=== PATIENT | female | born 1930 | race Caucasian/White ===

== ENCOUNTER 2017-05-01 12:45 | Emergency (ER) | payer OTHER, BC ==
[~2017-05-01] VITALS: Ht 157.5 cm; Wt 76.0 kg
[~2017-05-01 12:45] MED LIST: ALBUAER19 INH; ALUM-30 PO; ATOR-22 PO; BNC/40 PO; CHOL20009 PO; DICL1GEL12 TOP; DICY10CA12 PO; DILT-117 PO; FLUT0.0529 NAE; LEVO50TA6 PO; OMEP20CA9 PO; OXYSR10 PO; SERT1TAB71 PO; TPRSR25 PO; TRAM-453 PO; TRAZ1TAB9 PO; TYLOTC500 PO
[2017-05-01 12:52] VITALS: Ht 157.5 cm; Wt 76.0 kg
[2017-05-01] MEDS ORDERED: ARC5 PO (13:19)
[2017-05-01] MEDS ORDERED: [UNRECOGNIZED DRUG - CODE] PO (13:19)
[2017-05-01] MEDS ORDERED: FLV1 PO (13:19)
[2017-05-01] MEDS ORDERED: FERR1TAB62 PO (13:19)
[2017-05-01] MEDS ORDERED: VNTHFA/IN INH (13:20)
[2017-05-01] MEDS ORDERED: FLUT0.15 NAE (13:20)
[2017-05-01] MEDS ORDERED: ACETAMINOPHEN 325 MG TAB PO STA (13:27)
--- NOTE | 2017-05-01 14:05 | DIAGNOSTIC IMAGING REPORT ---
HEAD CT NONCONTRAST CT DOSE: 537.48 mGy.cm HISTORY: Trauma fall; L frontal contusion TECHNIQUE: Multiaxial CT images of the head were performed without the use of intravenous contrast. Comparison: 06/25/2016 Findings: The paranasal sinuses and mastoid air cells are clear. The calvarium and skull base are intact. The ventricles and sulci are within normal limits. There is no mass, hematoma, midline shift, or acute infarct. Components of chronic small vessel change in the cerebral hemispheres bilaterally. This is unaltered from the prior exam. Extracranial left prefrontal soft tissue edema. The orbits are symmetric. Impression: 1. No acute intracranial abnormality. 2. Considerable chronic small vessel change considered unchanged in the prior exam. 3. Extracranial left prefrontal soft tissue edema/contusion. Electronically signed by: Keith Ortiz M.D. 05/01/2017 2:02 PM Dictated Date/Time: 05/01/2017 2:00 PM
--- NOTE | 2017-05-01 14:35 | DIAGNOSTIC IMAGING REPORT ---
LEFT KNEE 3 VIEWS CLINICAL HISTORY: fall; R and L knee contusions trauma. Pain. COMPARISON: None. DISCUSSION: The bones and joint spaces appear intact. There is no evidence of fracture, dislocation or bony disease. Small osteophyte from the superior aspect of the patella. No significant joint effusion. IMPRESSION: No acute process. Electronically signed by: Keith Ortiz M.D. 05/01/2017 2:34 PM Dictated Date/Time: 05/01/2017 2:34 PM
--- NOTE | 2017-05-01 14:37 | DIAGNOSTIC IMAGING REPORT ---
RIGHT KNEE 3 VIEWS CLINICAL HISTORY: Right knee pain status post trauma COMPARISON: 1815 DISCUSSION: The bones are osteopenic. No acute fractures are visualized. There is a suspected small suprapatellar joint effusion. There are mild degenerative changes. IMPRESSION: Mild degenerative change. No acute fractures. Suspected small joint effusion Electronically signed by: Vinh Lam M.D. 05/01/2017 2:35 PM Dictated Date/Time: 05/01/2017 2:35 PM
--- NOTE | 2017-05-01 14:43 | DIAGNOSTIC IMAGING REPORT ---
LEFT HAND MIN 3 VIEWS ROUTINE CLINICAL HISTORY: fall; L hand and thumb pain trauma. Pain. COMPARISON: None. DISCUSSION: Nondisplaced transverse cortical fracture distal first metacarpal. Generalized soft tissue edema. Moderate degenerative change of the interphalangeal joints as well as intercarpal joints throughout. No evidence for dislocation. IMPRESSION: 1. Nondisplaced transverse cortical fracture distal first metacarpal. 2. Generalized soft tissue edema Electronically signed by: Keith Ortiz M.D. 05/01/2017 2:41 PM Dictated Date/Time: 05/01/2017 2:39 PM
[2017-05-01] MEDS ORDERED: DIPHTHERIA/TETANUS/PERTUSSIS 0.5 ML SYR/VIAL IM. ONE (15:30)
--- NOTE | 2017-05-01 16:11 | EMERGENCY ROOM VISIT NOTE ---
ED Visit Note First contact with patient: 13:15 I have personally seen and evaluated the patient with the physician refinery operator assistant. I agree with the diagnostic/management decisions and have personally been involved in these decisions and agree with the diagnosis.
[2017-05-01 16:24] VITALS: BP 134/71; PULSE 65; TEMP 36.6; O2SAT 96
--- NOTE | 2017-05-09 14:09 | EMERGENCY ROOM VISIT NOTE ---
ED Visit Note First contact with patient: 13:15 Chief Complaint: Fall. History of Present Illness: Ms. Olmstead is an 86-year-old white female who is brought into the ED via wheelchair accompanied by her daughter following a fall. Patient was just discharged from the Medical Treatment Unit where she received 2 units of blood for anemia. Patient reports she was going to the bathroom and when she was pulling up her underwear she lost her balance and fell into the wall. She reports she struck her left-sided forehead on the wall and then fell to her knees. In the process of her fall she also put out her left arm to catch her weight. She reports at the time of the injury she did not have a loss of consciousness and since the injury just a few minutes ago she reports she is not having a headache or any abnormal neurological symptoms. Her most severe discomfort is in the left hand over the first metacarpal and extending into the thumb. She describes this pain as a sharp and throbbing sensation. She rates her discomfort 8/10. Her pain is nonradiating. Her pain worsens with palpation in all movements of the MCP joint. She has not identified any alleviating factors related to the pain. She has not had any medications for pain prior to arrival at the hospital. Associated with her pain she reports mild swelling. She denies any omega wrist pain, forearm pain, thumb weakness/numbness/tingling. She also denies any previous significant injuries to the thumb or the left hand. Additionally she is complaining of mild tenderness and swelling in the left frontal area and over the anterior aspect of both knees. She describes these as a mild achy sensation. She does not rates this discomfort. These discomforts worsen with palpation. Additionally she denies dizziness, lightheadedness, neck pain/stiffness, chest pain, shortness of breath, thoracic and lumbar back pain, abdominal pain, nausea , vomiting, extremity weakness/numbness/tingling. Review of Systems: As noted above in history of present illness. All body systems were reviewed and found to be negative as noted above. Past Medical History: (1) Arthritis (2) Depressive Disorder Nec (3) Diab Ira Wo Compl, Type Ii Or Unspec Type, Not Uncntrld (4) Esophageal Reflux (5) Fibromyalgia (6) Glaucoma Nos (7) Hypertension Nos (8) Hypothyroidism Nos (9) Rheumatoid Arthritis CURRENT MEDICATION: Medications Dose Route/Sig Max Daily Dose Days Date Category Dose Instructions Ventolin Hfa (Albuterol) 200 Puffs/86857 Mcg Aers 2 Puffs INH QID PRN 05/01/17 Reported Flonase Allergy Relief (Fluticasone Propionate (Nasal)) 50 Mcg/Act Spr 2 [place] EDWARD DAILY 05/01/17 Reported Cvs Vitamin B12 (Cyanocobalamin) 1,000 Mcg Tab 1,000 Mcg PO QAM 05/01/17 Reported Folic Acid 1 Mg Tab 1 Mg PO QAM 05/01/17 Reported Donepezil HCl 5 Mg Tab 5 Mg PO HS 05/01/17 Reported Ferrous Sulfate 325 Mg Tab 325 Mg PO BID 05/01/17 Reported Metoprolol Succinate ER (Metoprolol Succinate) 25 Mg Tabcr 25 Mg PO HS 07/04/16 Reported Mylanta (Alum & Mag Hydrox-Simethicone) 1 Meaghan Meaghan 1 Tbs PO DAILY 06/25/16 Reported pt takes in between meals Levothyroxine Sodium 50 Mcg Tab 50 Mcg PO DAILY 30 05/28/15 Reported Benicar (Olmesartan Medoxomil) 40 Mg Tab 40 Mg PO DAILY 05/28/15 Reported Vitamin D (Cholecalciferol) 2,000 Unit Tab 2,000 Units PO DAILY 05/28/15 Reported Ultram (Tramadol Hcl) 50 Mg Tab 50 Mg PO TID PRN 05/28/15 Reported TAKE WITH A 500MG TYLENOL TABLET Oxycontin (Oxycodone HCl) 10 Mg Tabcr 10 Mg PO BID 05/28/15 Reported one tab in am and one tab in pm Tylenol (Acetaminophen) 500 Mg Tab 500 Mg PO 3-4XD PRN 05/28/15 Reported Prilosec (Omeprazole) 20 Mg Cap 40 Mg PO AMHS 05/28/15 Reported Voltaren 1% Top Gel (Diclofenac Sodium (Topical)) 1 % Gel 2 Gm TOP QID PRN 05/28/15 Reported Zoloft (Sertraline Hcl) 50 Mg Tab 50 Mg PO QPM 05/28/15 Reported Desyrel (Trazodone Hcl) 100 Mg Tab 100 Mg PO HS 05/28/15 Reported Dicyclomine Hcl 10 Mg Cap 10 Mg PO TID 30 05/28/15 Reported BEFORE MEALS Tiazac (Diltiazem HCl) 300 Mg Capcr 300 Mg PO HS 05/28/15 Reported Lipitor (Atorvastatin Calcium) 20 Mg Tab 20 Mg PO HS 05/28/15 Reported Allergies to Medications: Aspirin, cyclobenzaprine, diazepam, hydrochlorothiazide, meloxicam, methotrexate, penicillin, potassium chloride, sulfa. Social History: Patient is not currently employed; she feels safe in her home environment; she denies tobacco use. Physical Examination: Vital Signs: Date Time Temp Pulse Resp B/P (MAP) Pulse Ox O2 Delivery O2 Flow Rate FiO2 05/01/17 16:24 36.6 65 20 134/71 96 05/01/17 16:24 65 20 134/71 96 Room Air 05/01/17 12:52 36.6 52 20 169/70 96 Room Air GENERAL: 86-year-old female in mild to moderate distress due to pain, nontoxic- appearing, afebrile and hemodynamically stable. NEUROLOGICAL: Awake, alert and oriented to person, place and time. Answering questions appropriately and following commands. Cranial nerves II through XII grossly intact. Good short-term and long-term recall. SKIN: Warm, dry and pink. Forehead: Early contusion to the left forehead. Left Thumb: Swelling and ecchymosis around the metacarpal extending into the MCP and proximal phalange area. Bilateral Knees: Early contusions and minimal swelling; no active bleeding. Bilateral Lower Legs: Shows multiple small soft tissue skin tears with no active bleeding. HEENT: Skull: Atraumatic and normocephalic. No palpable deformity, bony crepitus, swelling or depressions. No raccoon's eyes or quintanilla signs. No drainage from the ears and the naris; no hemotympanum. Face: Mild tenderness over the left frontal area with early contusion as noted above. Do not appreciate any bony deformity or crepitus. There is no other swelling noted and I did not appreciate any deformities of the orbits, zygomatic arch areas, nasal bones, maxilla or mandible. PERRLA. EOMI without nystagmus. Sclera white and conjunctiva pink. No malocclusion. No intraoral trauma. Airway patent. Speech normal. Trachea midline. No jugular venous distention. BACK: No tenderness over the bony cervical, thoracic and lumbar spine. Full range of motion of the cervical spine. No tenderness throughout the paraspinous muscles of the spine. No CVA tenderness. THORAX: Lungs sounds are clear to auscultation and equal bilaterally with symmetrical chest wall. No crepitus, tenderness, subcutaneous air or deformities noted. ABDOMEN: Flat, soft and nontender. Positive bowel sounds in all quadrants. No guarding, rigidity or organomegaly. UPPER EXTREMITIES: No tenderness over the shoulders, upper arms, elbows, forearms or wrists. On the left patient has moderate tenderness and swelling over the first metacarpal, the first MCP joint and first proximal phalange. I do not appreciate any bony deformity or crepitus. She had difficulty moving the MCP joint due to pain. With the MCP joint stabilize she was able to flex and stand the first interphalangeal joint without difficulty. Thumb was warm and pink and capillary refill is brisk. She is able to distinguish light sensations over the distal thumb. There was no tenderness, bony deformity or swelling of the rest of the left hand and all of the right hand. All distal neurovascular statuses are intact and equal bilaterally. LOWER EXTREMITIES: No shortening or mouth rotation's. No tenderness over the hips, thighs, knees, lower legs, ankles or feet. Superficial abrasions as noted above. Mild swelling to the prepatellar area on the right. On examination she has full range of motion in flexion and extension of the knees. Do not appreciate any laxity of the collateral or cruciate ligaments. Because of her body habitus it was difficult to do Raul's test. There is also full range of motion at the hip and the ankle. Distal neurovascular statuses are intact and equal bilaterally. ED Course: Patient is assessed as noted above. Patient's medication list was reviewed. Head CT: Was reviewed by myself and read by the radiologist showing no acute intracranial abnormalities. Considerable chronic small vessel changes but unchanged from previous CT. Left prefrontal extracranial soft tissue edema. Left Hand X-Rays: Were read by myself and the radiologist showing a nondisplaced transverse cortical fracture of the distal first metacarpal with mild swelling. Radiologist also noted moderate degenerative changes throughout the interphalangeal joints and inter- carpal joints. Right Knee X-Rays: Were read by myself and the radiologist showing no acute fractures or dislocations. Small suprapatellar joint effusion and mild degenerative changes noted by the radiologist. Left Knee X-Rays: Was read by myself and the radiologist and showing no acute fractures or dislocations. No joint effusion. Small osteophyte in the superior aspect of the patella. Patient was given 650 mg of acetaminophen by mouth for pain and because of her superficial abrasions her tetanus status was unsure so she received a Adacel injection. Patient's left thumb fracture was placed in a Ortho-Glass thumb spica splint. Patient's wounds were cleansed with antibacterial soap and water and dressed with sterile dressings. Patient's case was reviewed with Dr. Ascencio; he independently assessed the patient we agreed on diagnostic approach, treatment, disposition and plan. Patient and daughter were educated about today's findings and instructed on her treatment plan; she verbalizes understanding and agreement with this plan. Clinical Impression: Left first metacarpal fracture. Left prefrontal area contusion. Bilateral patellar contusions. Bilateral lower leg superficial skin tears. Disposition: Patient discharged home in stable condition accompanied by her daughter; prior to departure she was reassessed and subjectively reported she was feeling better and rated her discomfort 2/10. Plan: Patient was encouraged to continue her current medications. Wound care, comfort measures and signs of infection were discussed with the patient and her daughter. Daughter was educated on signs of worsening head injury. Patient was encouraged to follow-up with network desktop support specialist in [place] for her thumb fracture. Patient was encouraged return the ED or follow-up with her primary care provider for any signs of infection or any new/concerning symptoms. Patient was encouraged return the ED for any signs of worsening head injury or any new/concerning symptoms.
[2017-05-09] MEDS ORDERED: FOLI1TAB7 PO (15:12)
[2017-05-09] MEDS ORDERED: FERR1TAB13 PO (15:12)
[2017-05-09] MEDS ORDERED: CYAN100020 PO (15:12)
[2017-05-09] MEDS ORDERED: DONE5TAB9 PO (15:12)
[2017-05-09] MEDS ORDERED: GUAI1TAB69 PO (15:12)
[2017-05-09] MEDS ORDERED: LATA0.5S OP (15:12)
[2017-05-09] MEDS ORDERED: ALPPOPS5 OP (15:12)
== END 2017-05-01 16:26 | disposition home or self-care (01) ==
LOC: C.EDB 12:46 → C.EDA 16:26
DX: S62.522A Displaced fracture of distal phalanx of left thumb, initial encounter for closed fracture (principal); S00.83XA Contusion of other part of head, initial encounter; S80.01XA Contusion of right knee, initial encounter; S80.02XA Contusion of left knee, initial encounter; S80.811A Abrasion, right lower leg, initial encounter; S80.812A Abrasion, left lower leg, initial encounter; W18.30XA Fall on same level, unspecified, initial encounter; Y92.238 Other place in hospital as the place of occurrence of the external cause; M25.461 Effusion, right knee; M25.762 Osteophyte, left knee; F32.9 Major depressive disorder, single episode, unspecified; E11.9 Type 2 diabetes mellitus without complications; K21.9 Gastro-esophageal reflux disease without esophagitis; D64.9 Anemia, unspecified; I10 Essential (primary) hypertension; E03.9 Hypothyroidism, unspecified; M06.9 Rheumatoid arthritis, unspecified; Z23 Encounter for immunization

== ENCOUNTER 2017-05-02 15:22 | Emergency (ER) | payer OTHER, BC ==
[~2017-05-02] VITALS: Ht 157.5 cm; Wt 73.0 kg
[~2017-05-02 15:22] MED LIST changes: -ALBUAER19 INH; +ARC5 PO; +FERR1TAB62 PO; -FLUT0.0529 NAE; +FLUT0.15 NAE; +FLV1 PO; +VNTHFA/IN INH; +[UNRECOGNIZED DRUG - CODE] PO
[2017-05-02 15:32] VITALS: BP 157/71; PULSE 70; TEMP 37.4; O2SAT 95; Ht 157.5 cm; Wt 73.0 kg
--- NOTE | 2017-05-02 16:13 | EMERGENCY ROOM VISIT NOTE ---
History Report prepared by Barryibcosta: Suzette Mccoy Under the Supervision of: Dr. Simon Ascencio D.O. First contact with patient: 15:46 Chief Complaint: GI ASSESSMENT Stated Complaint: BLACK STOOL Nursing Triage Summary: triage note: Pt daughter reports pt has dark loose stool. pt daughter reports pt recieved blood tranfusion yesterday "they don't know where she is loosing blood." pt fell yesterday and got cast to left thumb today at [facility]. History of Present Illness The patient is a 86 year old female who presents to the Emergency Room with complaints of dark stools occurring today. The patient had a blood transfusion yesterday. She was having loose bowels today. She had 3-4 bowel movements today. Her stool was not black or tarry. She was started on iron pills about a week and a half ago. As per family, the patient has a colonoscopy scheduled for next Friday. She currently denies any pain. The patient denies any fevers, chills, or any other complaints. Source of History: patient Onset: today Position: other (global) Symptom Intensity: No pain Quality: other (black stools) Associated Symptoms: No fevers, No chills Review of Systems See HPI for pertinent positives & negatives. A total of 10 systems reviewed and were otherwise negative. Past Medical & Surgical Medical Problems: (1) Arthritis (2) Depressive Disorder Nec (3) Diab Ira Wo Compl, Type Ii Or Unspec Type, Not Uncntrld (4) Esophageal Reflux (5) Fibromyalgia (6) Glaucoma Nos (7) Hypertension Nos (8) Hypothyroidism Nos (9) Rheumatoid Arthritis Family History FH: cancer FH: diabetes mellitus FH: hypertension FH: kidney disease Noncontributory due to advanced age Social History Smoking Status: Former Smoker Alcohol Use: none Marital Status: Housing Status: lives with family Occupation Status: retired Current/Historical Medications Scheduled Alum & Mag Hydrox-Simethicone (Mylanta), 1 TBS PO DAILY Atorvastatin (Lipitor), 20 MG PO HS Cholecalciferol (Vitamin D), 2,000 UNITS PO DAILY Cyanocobalamin (Cvs Vitamin B12), 1,000 MCG PO QAM Dicyclomine Hcl (Dicyclomine Hcl), 10 MG PO TID Diltiazem Hcl Ext Rel (Tiazac), 300 MG PO HS Donepezil HCl (Donepezil HCl), 5 MG PO HS Ferrous Sulfate (Ferrous Sulfate), 325 MG PO BID Fluticasone Propionate (Nasal) (Flonase Allergy Relief), 2 SPRAY EDWARD DAILY Folic Acid (Folic Acid), 1 MG PO QAM Levothyroxine Sodium (Levothyroxine Sodium), 50 MCG PO DAILY Metoprolol Succinate (Metoprolol Succinate ER), 25 MG PO HS Olmesartan Medoxomil (Benicar), 40 MG PO DAILY Omeprazole (Prilosec), 40 MG PO AMHS Oxycodone HCl (Oxycontin), 10 MG PO BID Sertraline Hcl (Zoloft), 50 MG PO QPM Trazodone Hcl (Desyrel), 100 MG PO HS Scheduled PRN Acetaminophen (Tylenol), 500 MG PO 3-4XD PRN for Pain Albuterol Hfa (Ventolin Hfa), 2 PUFFS INH QID PRN for Shortness of Breath Diclofenac Sodium (Topical) (Voltaren 1% Top Gel), 2 GM TOP QID PRN for Pain Tramadol Hcl (Ultram), 50 MG PO TID PRN for Pain Allergies Coded Allergies: Diazepam (Unverified Allergy, Intermediate, HALLUCIATIONS, 05/01/17) Penicillins (Unverified Allergy, Intermediate, DIARRHEA, 05/01/17) Sulfa Drugs (Unverified Allergy, Intermediate, ABD PAIN, 05/01/17) Aspirin (Verified Allergy, Unknown, unk, 05/01/17) Cyclobenzaprine (Verified Allergy, Unknown, unk, 05/01/17) Hydrochlorothiazide (Verified Allergy, Unknown, unk, 05/01/17) Meloxicam (Verified Allergy, Unknown, unk, 05/01/17) Methotrexate (Verified Allergy, Unknown, unk, 05/01/17) Potassium Chloride (Verified Allergy, Unknown, unk, 05/01/17) Rofecoxib (Unverified Allergy, Unknown, UNKNOWN, 05/01/17) Uncoded Allergies: TAPE (Allergy, Intermediate, REDDENED SKIN, SKIN TEARS, 05/01/17) PT MUST USE PAPER TAPE Physical Exam Vital Signs Date Time Temp Pulse Resp B/P (MAP) Pulse Ox O2 Delivery O2 Flow Rate FiO2 05/02/17 15:32 37.4 70 18 157/71 95 Room Air Physical Exam CONSTITUTIONAL/VITAL SIGNS: Reviewed / noted above. GENERAL: Non-toxic in appearance. INTEGUMENTARY: Warm, dry, and [place]. HEAD: Normocephalic. Left eye periorbital ecchymosis. EYES: without scleral icterus or trauma. ENT/OROPHARYNX: clear and moist. LYMPHADENOPATHY/NECK: Is supple without lymphadenopathy or meningismus. RESPIRATORY: Lungs clear and equal. CARDIOVASCULAR: Regular rate and rhythm. GI/ABDOMEN: Soft and nontender. No organomegaly or pulsatile mass. No rebound or guarding. Normal bowel sounds. RECTAL: Black stool, guaiac negative. EXTREMITIES: Warm and well perfused. Cast on left arm. BACK: No CVA tenderness. NEUROLOGICAL: Intact without focal deficits. PSYCHIATRIC: normal affect. MUSCULOSKELETAL: Normally developed with good muscle tone. Medical Decision & Procedures ED Course 1546: Previous medical records were reviewed. The patient was evaluated in room B10. A complete history and physical examination was performed. 1600: On reevaluation, the patient is resting comfortably. I discussed the results and findings with the patient. She verbalized agreement of the treatment plan. She was discharged home. Medical Decision Differential diagnosis: Etiologies such as diverticulosis, AVM, coagulopathy, colitis, inflammatory bowel disease, malignancy, Francesca-Manning tear, esophagitis, peptic ulcer disease , variceal bleed, gastritis, epistaxis, fissure, hemorrhoids, as well as others were entertained. Medication Reconciliation: I attest that I have personally reviewed the patient' s current medication list. Blood pressure Screening: Patient was found to have an elevated blood pressure and was referred to their primary doctor for recheck and further treatment. This is a 86-year-old female patient who was seen here yesterday after a fall. She was told to come into the hospital for black stools by the home health nurse. The patient had some black looking diarrhea, per the family earlier today. She denies any other specific complaints. Rectal exam reveals black stool that is guaiac negative. She is on supplemental iron for the past week. There were no other concerns other than concern for black stools or bleeding. She has no other complaints and does not want additional evaluation. She was discharged. The rest of her exam was unremarkable other than the injuries from yesterday's fall which included a cast of the left arm and periorbital ecchymosis in the left. Impression Primary Impression: Black stools Additional Impression: Iron (Fe) deficiency anemia Scribe Attestation The scribe's documentation has been prepared under my direction and personally reviewed by me in its entirety. I confirm that the note above accurately reflects all work, treatment, procedures, and medical decision making performed by me. Departure Information Dispostion Home / Self-Care Referrals Rola Leo M.D. (PCP) Forms HOME CARE DOCUMENTATION FORM, IMPORTANT VISIT INFORMATION Patient Instructions My [facility] Problem Qualifiers
[2017-05-09] MEDS ORDERED: FERR1TAB13 PO (15:12)
[2017-05-09] MEDS ORDERED: CYAN100020 PO (15:12)
[2017-05-09] MEDS ORDERED: ALPPOPS5 OP (15:12)
[2017-05-09] MEDS ORDERED: GUAI1TAB69 PO (15:12)
[2017-05-09] MEDS ORDERED: LATA0.5S OP (15:12)
[2017-05-09] MEDS ORDERED: DONE5TAB9 PO (15:12)
[2017-05-09] MEDS ORDERED: FOLI1TAB7 PO (15:12)
== END 2017-05-02 16:27 | disposition home or self-care (01) ==
LOC: C.EDB 15:27
DX: R19.5 Other fecal abnormalities (principal); D50.9 Iron deficiency anemia, unspecified; M19.90 Unspecified osteoarthritis, unspecified site; F32.9 Major depressive disorder, single episode, unspecified; E11.9 Type 2 diabetes mellitus without complications; K21.9 Gastro-esophageal reflux disease without esophagitis; M79.7 Fibromyalgia; H40.9 Unspecified glaucoma; I10 Essential (primary) hypertension; E03.9 Hypothyroidism, unspecified; M06.9 Rheumatoid arthritis, unspecified; Z80.9 Family history of malignant neoplasm, unspecified; Z83.3 Family history of diabetes mellitus; Z82.49 Family history of ischemic heart disease and other diseases of the circulatory system; Z84.1 Family history of disorders of kidney and ureter; Z87.891 Personal history of nicotine dependence; Z79.899 Other long term (current) drug therapy

== ENCOUNTER → 2017-05-09 | Day surgery (SDC) | payer OTHER, BC ==
[~2017-05-09] MED LIST changes: +ACET-1257 PO; +ALPPOPS5 OP; +BNC40 PO; +BNT/10 PO; +BRIM0.2S18 OPB; +CYAN100020 PO; +DILT300C PO; +DONE5TAB9 PO; +FENTANYL CITRATE INJ 50 MCG/1 ML 2 ML VIAL ONE; +FERR1TAB13 PO; +FOLI1TAB7 PO; +GUAI1TAB69 PO; +HYDR12.55 PO; +LATA0.5S OP; +LATA0.5S OPB; +LIDOCAINE HCL 2% 2 ML VIAL (20MG/ML) ONE; +METO25TA3 PO; +PRLSR20 PO; +PROPOFOL IV EMULSION 10 MG/ML 20 ML VIAL IV ONE; +SERT-234 PO; +TRAM-10 PO; +TRAZ100T29 PO; +VTMD1000 PO
--- NOTE | 2017-05-09 15:17 | Endo History and Physical ---
History & Physical Date of Service: May 09, 2017. Chief Complaint: Anemia Referring Physician: Dr Barnard History of Present Illness For EGD and Colonoscopy Past Surgical History Hx Post-Op Nausea and Vomiting: No Hx Urinary Tract Surgery: Yes ("Cradle Kidney") Family History None Social History Smoking Status: Former Smoker Hx Substance Use: No Hx Alcohol Use: No Allergies Coded Allergies: Diazepam (Unverified Allergy, Intermediate, HALLUCIATIONS, 05/02/17) Penicillins (Unverified Allergy, Intermediate, DIARRHEA, 05/02/17) Sulfa Drugs (Unverified Allergy, Intermediate, ABD PAIN, 05/02/17) Aspirin (Verified Allergy, Unknown, unk, 05/02/17) Cyclobenzaprine (Verified Allergy, Unknown, unk, 05/02/17) Hydrochlorothiazide (Verified Allergy, Unknown, unk, 05/02/17) Meloxicam (Verified Allergy, Unknown, unk, 05/02/17) Methotrexate (Verified Allergy, Unknown, unk, 05/02/17) Potassium Chloride (Verified Allergy, Unknown, unk, 05/02/17) Rofecoxib (Unverified Allergy, Unknown, UNKNOWN, 05/02/17) Uncoded Allergies: TAPE (Allergy, Intermediate, REDDENED SKIN, SKIN TEARS, 05/01/17) PT MUST USE PAPER TAPE Current Medications Reported Home Medications Medications Dose Route/Sig Max Daily Dose Days Date Category Dose Instructions Ventolin Hfa (Albuterol) 200 Puffs/71464 Mcg Aers 2 Puffs INH QID PRN 05/01/17 Reported Flonase Allergy Relief (Fluticasone Propionate (Nasal)) 50 Mcg/Act Spr 2 [place] EDWARD DAILY 05/01/17 Reported Cvs Vitamin B12 (Cyanocobalamin) 1,000 Mcg Tab 1,000 Mcg PO QAM 05/01/17 Reported Folic Acid 1 Mg Tab 1 Mg PO QAM 05/01/17 Reported Donepezil HCl 5 Mg Tab 5 Mg PO HS 05/01/17 Reported Ferrous Sulfate 325 Mg Tab 325 Mg PO BID 05/01/17 Reported Metoprolol Succinate ER (Metoprolol Succinate) 25 Mg Tabcr 25 Mg PO HS 07/04/16 Reported Mylanta (Alum & Mag Hydrox-Simethicone) 1 Meaghan Meaghan 1 Tbs PO DAILY 06/25/16 Reported pt takes in between meals Levothyroxine Sodium 50 Mcg Tab 50 Mcg PO DAILY 30 05/28/15 Reported Benicar (Olmesartan Medoxomil) 40 Mg Tab 40 Mg PO DAILY 05/28/15 Reported Vitamin D (Cholecalciferol) 2,000 Unit Tab 2,000 Units PO DAILY 05/28/15 Reported Ultram (Tramadol Hcl) 50 Mg Tab 50 Mg PO TID PRN 05/28/15 Reported TAKE WITH A 500MG TYLENOL TABLET Oxycontin (Oxycodone HCl) 10 Mg Tabcr 10 Mg PO BID 05/28/15 Reported one tab in am and one tab in pm Tylenol (Acetaminophen) 500 Mg Tab 500 Mg PO 3-4XD PRN 05/28/15 Reported Prilosec (Omeprazole) 20 Mg Cap 40 Mg PO AMHS 05/28/15 Reported Voltaren 1% Top Gel (Diclofenac Sodium (Topical)) 1 % Gel 2 Gm TOP QID PRN 05/28/15 Reported Zoloft (Sertraline Hcl) 50 Mg Tab 50 Mg PO QPM 05/28/15 Reported Desyrel (Trazodone Hcl) 100 Mg Tab 100 Mg PO HS 05/28/15 Reported Dicyclomine Hcl 10 Mg Cap 10 Mg PO TID 30 05/28/15 Reported BEFORE MEALS Tiazac (Diltiazem HCl) 300 Mg Capcr 300 Mg PO HS 05/28/15 Reported Lipitor (Atorvastatin Calcium) 20 Mg Tab 20 Mg PO HS 05/28/15 Reported Physical Exam General Appearance: + thin, + pertinent finding (Cast on left wrist) Respiratory/Chest: Respiratory effort: no dyspnea Cardiovascular: Heart Auscultation: RRR Abdomen: Inspection & Palpation: soft Assessment and Plan Anemia for EGD and colonoscopy
--- NOTE | 2017-05-09 15:48 | Discharge Instructions ---
Endoscopy Patient Instructions Date / Procedure(s) Performed May 09, 2017. Colonoscopy, EGD Allergy Information Coded Allergies: Diazepam (Unverified Allergy, Intermediate, HALLUCIATIONS, 05/02/17) Penicillins (Unverified Allergy, Intermediate, DIARRHEA, 05/02/17) Sulfa Drugs (Unverified Allergy, Intermediate, ABD PAIN, 05/02/17) Aspirin (Verified Allergy, Unknown, unk, 05/02/17) Cyclobenzaprine (Verified Allergy, Unknown, unk, 05/02/17) Hydrochlorothiazide (Verified Allergy, Unknown, unk, 05/02/17) Meloxicam (Verified Allergy, Unknown, unk, 05/02/17) Methotrexate (Verified Allergy, Unknown, unk, 05/02/17) Potassium Chloride (Verified Allergy, Unknown, unk, 05/02/17) Rofecoxib (Unverified Allergy, Unknown, UNKNOWN, 05/02/17) Uncoded Allergies: TAPE (Allergy, Intermediate, REDDENED SKIN, SKIN TEARS, 05/01/17) PT MUST USE PAPER TAPE Discharge Date / Findings May 09, 2017. polyps Medication Instructions Restart Stopped Medication(s): resume meds Reported Home Medications Medications Dose Route/Sig Max Daily Dose Days Date Category Dose Instructions Ventolin Hfa (Albuterol) 200 Puffs/22421 Mcg Aers 2 Puffs INH QID PRN 05/01/17 Reported Flonase Allergy Relief (Fluticasone Propionate (Nasal)) 50 Mcg/Act Spr 2 [place] DAILY 05/01/17 [address] [facility] Vitamin B12 (Cyanocobalamin) 1,000 Mcg Tab 1,000 Mcg PO QAM 05/01/17 Reported Folic Acid 1 Mg Tab 1 Mg PO QAM 05/01/17 Reported Donepezil HCl 5 Mg Tab 5 Mg PO HS 05/01/17 Reported Ferrous Sulfate 325 Mg Tab 325 Mg PO BID 05/01/17 Reported Metoprolol Succinate ER (Metoprolol Succinate) 25 Mg Tabcr 25 Mg PO HS 07/04/16 Reported Mylanta (Alum & Mag Hydrox-Simethicone) 1 Meaghan Meaghan 1 Tbs PO DAILY 06/25/16 Reported pt takes in between meals Levothyroxine Sodium 50 Mcg Tab 50 Mcg PO DAILY 30 05/28/15 Reported Benicar (Olmesartan Medoxomil) 40 Mg Tab 40 Mg PO DAILY 7/12/15 Reported Vitamin D (Cholecalciferol) 2,000 Unit Tab 2,000 Units PO DAILY 05/28/15 Reported Ultram (Tramadol Hcl) 50 Mg Tab 50 Mg PO TID PRN 05/28/15 Reported TAKE WITH A 500MG TYLENOL TABLET Oxycontin (Oxycodone HCl) 10 Mg Tabcr 10 Mg PO BID 05/28/15 Reported one tab in am and one tab in pm Tylenol (Acetaminophen) 500 Mg Tab 500 Mg PO 3-4XD PRN 05/28/15 Reported Prilosec (Omeprazole) 20 Mg Cap 40 Mg PO AMHS 05/28/15 Reported Voltaren 1% Top Gel (Diclofenac Sodium (Topical)) 1 % Gel 2 Gm TOP QID PRN 05/28/15 Reported Zoloft (Sertraline Hcl) 50 Mg Tab 50 Mg PO QPM 05/28/15 Reported Desyrel (Trazodone Hcl) 100 Mg Tab 100 Mg PO HS 05/28/15 Reported Dicyclomine Hcl 10 Mg Cap 10 Mg PO TID 30 05/28/15 Reported BEFORE MEALS Tiazac (Diltiazem HCl) 300 Mg Capcr 300 Mg PO HS 05/28/15 Reported Lipitor (Atorvastatin Calcium) 20 Mg Tab 20 Mg PO HS 05/28/15 Reported Provider Instructions Activity Restrictions - No exercising or heavy lifting for 24 hours. - Do not drink alcohol the day of the procedure. - Do not drive a car or operate machinery until the day after the procedure. - Do not make any important decisions or sign important papers in 24 hours after the procedure. Following Day: - Return to full activity which may include returning to work/school. Diet Start your diet with liquids and light foods (jello, soup, juice, toast). Then eat your usual diet if not nauseated. Treatment For Common After Affects For mild abdominal pain, bloating, or excessive gas: - Rest - Eat lightly - Lie on right side Follow-Up Information Follow-up with Dr Barnard as scheduled Anesthesia Information What You Should Know You have had a procedure that required some medicine to reduce anxiety and discomfort. This treatment is called moderate sedation. After receiving the treatment, you may be sleepy, but you will be able to breathe on your own. The effects of the treatment may last for several hours. Follow these instructions along with Activity/Diet recommendations noted above: * Do NOT do anything where dizziness or clumsiness would be dangerous. * Rest quietly at home today, then you can be up and about tomorrow. * Have a responsible person stay with you the rest of today. * You may have had an I.V. today. If so, you may take the dressing off later today. Recommendations Call your doctor if: * Trouble breathing * Continuous vomiting for more than 24 hours * Temperature above 101 degrees * Severe abdominal pain or bloating * Pain not relieved by pain medicine ordered * There is increased drainage or redness from any incision * A large amount of rectal bleeding greater than 2-3 tablespoons. (If you had a polyp/s removed or have hemorrhoids, a small amount of blood - from the rectum is to be expected.) * You have any unanswered questions or concerns. IN THE EVENT OF A SERIOUS EMERGENCY, GO TO THE NEAREST EMERGENCY ROOM Your discharge instructions were prepared by provider Braxton Echols. Patient Instructions Signature Page Shaneka Olmstead Patient (or Guardian) Signature/Date: I have read and understand the instructions given to me by my caregivers. Caregiver/RN/Doctor Signature/Date: The above-named patient and/or guardian has received patient instructions on this date. + Original Patient Signature Page (only) stays with chart. Please make copy for patient.
--- NOTE | 2017-05-09 15:52 | GI REPORT ---
Procedure Date: 05/09/2017 3:22 PM Procedure: Upper GI endoscopy Indications: Iron deficiency anemia Medicines: Fentanyl 100 micrograms IV, Propofol total dose 240 mg IV, Lidocaine 40 mg IV Complications: No immediate complications. Estimated Blood Loss: Estimated blood loss was minimal. Procedure: Pre-Anesthesia Assessment: - Prior to the procedure, a History and Physical was performed, and patient medications, allergies and sensitivities were reviewed. The patient's tolerance of previous anesthesia was reviewed. - The risks and benefits of the procedure and the sedation options and risks were discussed with the patient. All questions were answered and informed consent was obtained. After obtaining informed consent, the endoscope was passed under direct vision. Throughout the procedure, the patient's blood pressure, pulse, and oxygen saturations were monitored continuously. The scope was introduced through the mouth, and advanced to the second part of duodenum. The upper GI endoscopy was accomplished without difficulty. The patient tolerated the procedure well. Findings: The examined esophagus was normal. The entire examined stomach was normal. The 2nd part of the duodenum was normal. Biopsies were taken with a cold forceps for histology. Estimated blood loss was minimal. Impression: - Normal esophagus. - Normal stomach. - Normal 2nd part of the duodenum. Biopsied. Recommendation: - Discharge patient to home (ambulatory). - Continue present medications. - Await pathology results. - Return to primary care physician PRN. Braxton Echols M.D. Braxton Echols MD 05/09/2017 3:52:01 PM This report has been signed electronically. Note Initiated On: 05/09/2017 3:22 PM I attest to the content of the Intraoperative Record and orders documented therein, exceptions below
--- NOTE | 2017-05-09 15:52 | Anesthesiology Progress Note ---
Anesthesia Post Op Note Date & Time May 09, 2017 at 15:52 Vital Signs Vital Signs Past 12 Hours Date Time Temp Pulse Resp B/P (MAP) Pulse Ox O2 Delivery O2 Flow Rate FiO2 05/09/17 15:14 37.2 63 20 198/88 (124) 97 Room Air Notes Mental Status: alert / awake / arousable, participated in evaluation Pt Amnestic to Procedure: Yes Nausea / Vomiting: adequately controlled Pain: adequately controlled Airway Patency, RR, SpO2: stable & adequate BP & HR: stable & adequate Hydration State: stable & adequate Anesthetic Complications: no major complications apparent
--- NOTE | 2017-05-09 15:56 | GI REPORT ---
Procedure Date: 05/09/2017 3:32 PM Procedure: Colonoscopy Indications: Unexplained iron deficiency anemia Medicines: Fentanyl 100 micrograms IV, Propofol total dose 240 mg IV, Lidocaine 40 mg IV Complications: No immediate complications. Estimated Blood Loss: Estimated blood loss: none. Procedure: Pre-Anesthesia Assessment: - Prior to the procedure, a History and Physical was performed, and patient medications, allergies and sensitivities were reviewed. The patient's tolerance of previous anesthesia was reviewed. - The risks and benefits of the procedure and the sedation options and risks were discussed with the patient. All questions were answered and informed consent was obtained. After I obtained informed consent, the scope was passed under direct vision. Throughout the procedure, the patient's blood pressure, pulse, and oxygen saturations were monitored continuously. The scope was introduced through the anus and advanced to the cecum, identified by appendiceal orifice and ileocecal valve. The colonoscopy was performed without difficulty. The patient tolerated the procedure well. The colonoscopy was performed without difficulty. The patient tolerated the procedure well. The quality of the bowel preparation was good. Findings: Non-bleeding internal hemorrhoids were found during endoscopy. The hemorrhoids were mild. A 5 mm polyp was found in the ascending colon. The polyp was sessile. The polyp was removed with a hot snare. Resection and retrieval were complete. Estimated blood loss: none. A 5 mm polyp was found in the descending colon. The polyp was sessile. The polyp was removed with a hot snare. Resection and retrieval were complete. Estimated blood loss: none. Impression: - Non-bleeding internal hemorrhoids. - One 5 mm polyp in the ascending colon, removed with a hot snare. Resected and retrieved. - One 5 mm polyp in the descending colon, removed with a hot snare. Resected and retrieved. Recommendation: - Discharge patient to home (ambulatory). - Continue present medications. - Await pathology results. - Return to primary care physician PRN. Braxton Echols M.D. Braxton Echols MD 05/09/2017 3:55:15 PM This report has been signed electronically. Note Initiated On: 05/09/2017 3:32 PM I attest to the content of the Intraoperative Record and orders documented therein, exceptions below
[2017-05-09 16:20] VITALS: BP 179/68; PULSE 63; O2SAT 95
== END | disposition home or self-care (01) ==
LOC: C.GI 14:31
PROVIDERS: ATTEND Internal Medicine Gastroenterology
DX: D50.9 Iron deficiency anemia, unspecified (principal); K64.8 Other hemorrhoids; D12.2 Benign neoplasm of ascending colon; D12.4 Benign neoplasm of descending colon; J45.909 Unspecified asthma, uncomplicated; F41.9 Anxiety disorder, unspecified; F32.9 Major depressive disorder, single episode, unspecified; M19.90 Unspecified osteoarthritis, unspecified site; Z98.890 Other specified postprocedural states; Z90.49 Acquired absence of other specified parts of digestive tract; Z88.0 Allergy status to penicillin; Z88.2 Allergy status to sulfonamides

== ENCOUNTER 2017-08-14 06:36 | Emergency (ER) | payer OTHER, BC ==
[~2017-08-14] VITALS: Ht 157.5 cm; Wt 67.9 kg
[~2017-08-14 06:36] MED LIST changes: -ACET-1257 PO; -BNC40 PO; -BNT/10 PO; -BRIM0.2S18 OPB; -CYAN100020 PO; -DILT300C PO; -FENTANYL CITRATE INJ 50 MCG/1 ML 2 ML VIAL ONE; -FERR1TAB13 PO; -FERR1TAB62 PO; +FERR325T PO; -FOLI1TAB7 PO; -HYDR12.55 PO; -LATA0.5S OPB; -LIDOCAINE HCL 2% 2 ML VIAL (20MG/ML) ONE; -METO25TA3 PO; -PRLSR20 PO; -PROPOFOL IV EMULSION 10 MG/ML 20 ML VIAL IV ONE; -SERT-234 PO; -TRAM-10 PO; -TRAZ100T29 PO; +TRAZ1TAB8 PO; -TRAZ1TAB9 PO; -VTMD1000 PO
[2017-08-14 06:39] VITALS: TEMP 37; Ht 157.5 cm; Wt 67.9 kg
[2017-08-14] MEDS ORDERED: SODIUM CHLORIDE 0.9% 1000ML 1,000 ML IV STA (07:00)
[2017-08-14] MEDS ORDERED: ONDANSETRON 8 MG/54 ML D5W IV STA (07:00)
[2017-08-14] MEDS ORDERED: ALUM-30 PO (07:22)
[2017-08-14] MEDS ORDERED: DICL1GEL12 TOP (07:22)
[2017-08-14] MEDS ORDERED: HYDR12.55 PO (07:22)
[2017-08-14] MEDS ORDERED: BRIM0.2S18 OPB (07:22)
[2017-08-14] MEDS ORDERED: SERT-234 PO (07:22)
[2017-08-14] MEDS ORDERED: OXYSR10 PO (07:22)
[2017-08-14] MEDS ORDERED: METO25TA3 PO (07:22)
[2017-08-14] MEDS ORDERED: TRAZ100T29 PO (07:22)
[2017-08-14] MEDS ORDERED: PRLSR20 PO (07:22)
[2017-08-14] MEDS ORDERED: BNT/10 PO (07:22)
[2017-08-14] MEDS ORDERED: LATA0.5S OPB (07:22)
[2017-08-14] MEDS ORDERED: TRAM-10 PO (07:22)
[2017-08-14] MEDS ORDERED: LEVO50TA6 PO (07:22)
[2017-08-14] MEDS ORDERED: ACET-1257 PO (07:22)
[2017-08-14] MEDS ORDERED: DILT300C PO (07:22)
[2017-08-14] MEDS ORDERED: FERR1TAB13 PO (07:22)
[2017-08-14] MEDS ORDERED: VTMD1000 PO (07:22)
[2017-08-14] MEDS ORDERED: BNC40 PO (07:22)
--- NOTE | 2017-08-14 07:31 | DIAGNOSTIC IMAGING REPORT ---
CHEST ONE VIEW PORTABLE CLINICAL HISTORY: Altered mental status COMPARISON STUDY: No previous studies for comparison. FINDINGS: There is elevation/eventration of the right hemidiaphragm. The heart is the upper limits of normal in size. There is slight interstitial thickening. There is no overt failure. There is no lobar consolidation. There is minor right basilar atelectasis.[ IMPRESSION: 1. No evidence of focal pulmonary consolidation 2. Elevation/eventration right hemidiaphragm Electronically signed by: Vinh Lam M.D. 08/14/2017 7:23 AM Dictated Date/Time: 08/14/2017 7:22 AM
[2017-08-14 07:48] LABS: BASO % 0.1 %; BASO ABS # 0.01 K/uL (0-0.2); COMPLETE YES; HEMATOCRIT 43.4 % (37-47); IG% 0.5 %; LYMPH % 5.3 %; LYMPH ABS # 0.65 K/uL (1.2-3.4); MEAN CELL VOLUME 83.5 fL (80-100); MEAN CORPUSCULAR HEMOGLOBIN 28.5 pg (25-34); MEAN CORPUSCULAR HGB CONC 34.1 g/dl (32-36); MEAN PLATELET VOLUME 9.8 fL (7.4-10.4); MONO % 4.8 %; NEUT % 89.3 %; PLATELET COUNT 138 K/uL (130-400); WHITE BLOOD COUNT 12.17 K/uL (4.8-10.8)
--- NOTE | 2017-08-14 08:04 | DIAGNOSTIC IMAGING REPORT ---
HEAD WITHOUT CONTRAST (CT) CLINICAL HISTORY: 86 years-old Female presenting with EVALUATE ALTERED MENTAL STATUS/WEAKNESS. TECHNIQUE: Multidetector CT imaging of the head was performed without the use of intravenous contrast. IV contrast: None. A dose lowering technique was used consistent with the principles of ALARA (as low as reasonably achievable). COMPARISON: 05/01/2017. CT DOSE (mGy.cm): The estimated cumulative dose is 690.05 mGycm. FINDINGS: [employer] topogram: Unremarkable. Ventricles and sulci normal in size. Periventricular and subcortical white matter hypoattenuation, nonspecific but likely indicative of chronic small vessel ischemic change. Basal ganglia calcification likely age-related. No mass effect or midline shift. No hemorrhage or acute territorial infarct. No extra-axial fluid collection. Paranasal sinuses and mastoid air cells clear. Calvarium intact. Chronic rightward nasal septal deviation. IMPRESSION: 1. No acute intracranial pathology. 2. Stable appearance of extensive chronic small vessel ischemic change. Electronically signed by: Michael Norwood M.D. 08/14/2017 8:03 AM Dictated Date/Time: 08/14/2017 8:00 AM
[2017-08-14 08:05] LABS: PARTIAL THROMBOPLASTIN RATIO 0.9
[2017-08-14 08:07] LABS: ALT/SGPT 25 U/L (12-78); BLOOD UREA NITROGEN 21 mg/dl (7-18); BUN/CREATININE RATIO 23.3 (10-20); CALCIUM 9.4 mg/dl (8.5-10.1); CARBON DIOXIDE 26 mmol/L (21-32); CHLORIDE 100 mmol/L (98-107); CREATININE 0.92 mg/dl (0.60-1.20); GLUCOSE 215 mg/dl (70-99); MAGNESIUM 2.2 mg/dl (1.8-2.4); POTASSIUM 3.6 mmol/L (3.5-5.1); SODIUM 137 mmol/L (136-145)
[2017-08-14 08:16] LABS: ALKALINE PHOSPHATASE 74 U/L (45-117); AST/SGOT 20 U/L (15-37); CKMB/CK RATIO 1.6 (0-3.0)
[2017-08-14 08:18] LABS: URINE APPEARANCE CLEAR (CLEAR); URINE BILIRUBIN NEG (NEG); URINE COLOR YELLOW; URINE EPITHELIAL CELL AUTO >30 /lpf (0-5); URINE NITRITE NEG (NEG); URINE SPECIFIC GRAVITY 1.015 (1.000-1.030); UROBILINOGEN NEG (NEG); ZZUR CULT IF INDIC CLEAN CATCH NO
[2017-08-14 08:20] LABS: MANUAL MICROSCOPIC REQUIRED? NO; REVIEW REQ? NO
[2017-08-14 10:31] VITALS: BP 176/75; PULSE 57; O2SAT 97
--- NOTE | 2017-08-14 10:32 | EMERGENCY ROOM VISIT NOTE ---
History Report prepared by Agusto: Mamie Pickard Under the Supervision of: Dr. Simon Ascencio D.O. First contact with patient: 06:49 Chief Complaint: DIARRHEA Stated Complaint: LAMB, DIARRHEA, HALLUCINATIONS History of Present Illness The patient is a 86 year old female who presents to the Emergency Room with complaints of intermittent diarrhea for the past two days. She estimates that she is having about 7 episodes of diarrhea each day. Yesterday the patient developed a headache, neck pain, and back pain. This has continued into this morning. She rates her pain as a 6/10 in severity. The patient has noticed a rash on her arms. She states that she has not slept for the past day and a half due to her symptoms. The patient's daughter states that she has been hallucinating. She has been seeing writing on [employer] and trying to pick things up that aren't there. The patient had fluid drained from her knee two days ago and had a shot of cortisone at that time. Daughter states that she has had this done multiple times in the past without any side effects. She does not take any blood thinners. Source of History: patient, family Onset: 2 days ago Position: abdomen Symptom Intensity: 6/10 Quality: other (diarrhea) Timing: intermittent Associated Symptoms: + headache, + neck pain, + back pain, + rash Note: Pt not sleeping. Pt hallucinating. Review of Systems See HPI for pertinent positives & negatives. A total of 10 systems reviewed and were otherwise negative. Past Medical & Surgical Medical Problems: (1) Arthritis (2) Depressive Disorder Nec (3) Diab Ira Wo Compl, Type Ii Or Unspec Type, Not Uncntrld (4) Esophageal Reflux (5) Fibromyalgia (6) Glaucoma Nos (7) Hypertension Nos (8) Hypothyroidism Nos (9) Rheumatoid Arthritis Family History FH: cancer FH: diabetes mellitus FH: hypertension FH: kidney disease Noncontributory due to advanced age Social History Smoking Status: Former Smoker Alcohol Use: none Marital Status: Housing Status: lives with family Occupation Status: retired Current/Historical Medications Scheduled Brimonidine Tartrate (Brimonidine Tartrate), 1 DROP OPB BID Cholecalciferol (Vitamin D3), 1,000 UNITS PO DAILY Diclofenac Sodium (Topical) (Voltaren 1% Top Gel), 2 GM TOP QID Diltiazem Hcl Coated Beads (Diltiazem Hcl Er), 300 MG PO HS Ferrous Sulfate (Kp Ferrous Sulfate), 325 MG PO QPM Hydrochlorothiazide (Hydrochlorothiazide), 12.5 MG PO MWF Latanoprost (Xalatan 0.005% Oph Marilyn), 1 DROPS OPB HS Levothyroxine Sodium (Levothyroxine Sodium), 50 MCG PO DAILY Metoprolol Succinate (Toprol Xl), 25 MG PO HS Olmesartan Medoxomil (Benicar), 40 MG PO QAM Omeprazole (Prilosec), 40 MG PO QAM Sertraline (Zoloft), 100 MG PO QAM Trazodone Hcl (Trazodone), 100 MG PO HS Scheduled PRN Acetaminophen (Tylenol Extra Strength), 500 MG PO Q4 PRN for Breakthrough Pain Alum & Mag Hydrox-Simethicone (Mylanta), 15 ML PO TID PRN for Indigestion Dicyclomine HCl (Dicyclomine HCl), 10 MG PO TID PRN for Nausea Oxycodone HCl (Oxycontin), 10 MG PO AMPM PRN for Pain Tramadol (Ultram), 50 MG PO TID PRN for Pain Allergies Coded Allergies: Diazepam (Unverified Allergy, Intermediate, HALLUCIATIONS, 05/02/17) Hydrocodone (Unverified Allergy, Intermediate, unk, 08/14/17) Penicillins (Unverified Allergy, Intermediate, DIARRHEA, 05/02/17) Sulfa Drugs (Unverified Allergy, Intermediate, ABD PAIN, 05/02/17) Aspirin (Verified Allergy, Unknown, unk, 05/02/17) Cyclobenzaprine (Verified Allergy, Unknown, unk, 05/02/17) Hydrochlorothiazide (Verified Allergy, Unknown, unk, 08/14/17) PATIENT IS ON THIS MEDICATION. I BELIEVE THIS WAS ENTERED IN ERROR VS HYDROCODONE, WHICH THE PATIENT IS ALLERGIC TO. UNABLE TO DELETE. Meloxicam (Verified Allergy, Unknown, unk, 05/02/17) Methotrexate (Verified Allergy, Unknown, unk, 05/02/17) Potassium Chloride (Verified Allergy, Unknown, unk, 05/02/17) Rofecoxib (Unverified Allergy, Unknown, UNKNOWN, 05/02/17) Uncoded Allergies: TAPE (Allergy, Intermediate, REDDENED SKIN, SKIN TEARS, 05/01/17) PT MUST USE PAPER TAPE Physical Exam Vital Signs Date Time Temp Pulse Resp B/P (MAP) Pulse Ox O2 Delivery O2 Flow Rate FiO2 08/14/17 09:20 55 20 177/87 97 Room Air 08/14/17 08:08 57 20 188/74 94 Room Air 08/14/17 07:24 53 08/14/17 06:39 37.0 58 20 191/77 94 Room Air Physical Exam CONSTITUTIONAL/VITAL SIGNS: Reviewed / noted above. GENERAL: Non-toxic in appearance. INTEGUMENTARY: Warm, dry, and [place]. There are several small bruises on the left hand and some generalized dryness of the skin, no other areas of petechia or purpura noted. HEAD: Normocephalic. EYES: without scleral icterus or trauma. ENT/OROPHARYNX: clear and moist. LYMPHADENOPATHY/NECK: Is supple without lymphadenopathy or meningismus. RESPIRATORY: Lungs clear and equal. CARDIOVASCULAR: Regular rate and rhythm. GI/ABDOMEN: Soft and nontender. No organomegaly or pulsatile mass. No rebound or guarding. Normal bowel sounds. EXTREMITIES: Warm and well perfused. BACK: No CVA tenderness. NEUROLOGICAL: Intact without focal deficits. PSYCHIATRIC: normal affect. MUSCULOSKELETAL: Normally developed with good muscle tone. Medical Decision & Procedures ER Provider Diagnostic Interpretation: Radiology results as stated below per my review and radiologist interpretation: HEAD WITHOUT CONTRAST (CT) CLINICAL HISTORY: 86 years-old Female presenting with EVALUATE ALTERED MENTAL STATUS/WEAKNESS. TECHNIQUE: Multidetector CT imaging of the head was performed without the use of intravenous contrast. IV contrast: None. A dose lowering technique was used consistent with the principles of ALARA (as low as reasonably achievable). COMPARISON: 05/01/2017. CT DOSE (mGy.cm): The estimated cumulative dose is 690.05 mGycm. FINDINGS: Cloth Tester topogram: Unremarkable. Ventricles and sulci normal in size. Periventricular and subcortical white matter hypoattenuation, nonspecific but likely indicative of chronic small vessel ischemic change. Basal ganglia calcification likely age-related. No mass effect or midline shift. No hemorrhage or acute territorial infarct. No extra-axial fluid collection. Paranasal sinuses and mastoid air cells clear. Calvarium intact. Chronic rightward nasal septal deviation. IMPRESSION: 1. No acute intracranial pathology. 2. Stable appearance of extensive chronic small vessel ischemic change. Electronically signed by: Michael Norwood M.D. 08/14/2017 8:03 AM Dictated Date/Time: 08/14/2017 8:00 AM CHEST ONE VIEW PORTABLE CLINICAL HISTORY: Altered mental status COMPARISON STUDY: No previous studies for comparison. FINDINGS: There is elevation/eventration of the right hemidiaphragm. The heart is the upper limits of normal in size. There is slight interstitial thickening. There is no overt failure. There is no lobar consolidation. There is minor right basilar atelectasis.[ IMPRESSION: 1. No evidence of focal pulmonary consolidation 2. Elevation/eventration right hemidiaphragm Electronically signed by: Vinh Lam M.D. 08/14/2017 7:23 AM Dictated Date/Time: 08/14/2017 7:22 AM Laboratory Results 08/14/17 07:30 Red Blood Count 5.20, Mean Corpuscular Volume 83.5, Mean Corpuscular Hemoglobin 28.5, Mean Corpuscular Hemoglobin Concent 34.1, Mean Platelet Volume 9.8, Neutrophils (%) (Auto) 89.3, Lymphocytes (%) (Auto) 5.3, Monocytes (%) (Auto) 4.8, Eosinophils (%) (Auto) 0.0, Basophils (%) (Auto) 0.1, Neutrophils # (Auto) 10.87, Lymphocytes # (Auto) 0.65, Monocytes # (Auto) 0.58, Eosinophils # (Auto) 0.00, Basophils # (Auto) 0.01 08/14/17 07:30 Test 08/14/17 07:30 08/14/17 08:00 White Blood Count 12.17 K/uL (4.8-10.8) Red Blood Count 5.20 M/uL (4.2-5.4) Hemoglobin 14.8 g/dL (12.0-16.0) Hematocrit 43.4 % (37-47) Mean Corpuscular Volume 83.5 fL (80-100) Mean Corpuscular Hemoglobin 28.5 pg (25-34) Mean Corpuscular Hemoglobin Concent 34.1 g/dl (32-36) Platelet Count 138 K/uL (130-400) Mean Platelet Volume 9.8 fL (7.4-10.4) Neutrophils (%) (Auto) 89.3 % Lymphocytes (%) (Auto) 5.3 % Monocytes (%) (Auto) 4.8 % Eosinophils (%) (Auto) 0.0 % Basophils (%) (Auto) 0.1 % Neutrophils # (Auto) 10.87 K/uL (1.4-6.5) Lymphocytes # (Auto) 0.65 K/uL (1.2-3.4) Monocytes # (Auto) 0.58 K/uL (0.11-0.59) Eosinophils # (Auto) 0.00 K/uL (0-0.5) Basophils # (Auto) 0.01 K/uL (0-0.2) RDW Standard Deviation 41.0 fL (36.4-46.3) RDW Coefficient of Variation 13.6 % (11.5-14.5) Immature Granulocyte % (Auto) 0.5 % Immature Granulocyte # (Auto) 0.06 K/uL (0.00-0.02) Prothrombin Time 11.0 SECONDS (9.0-12.0) Prothromb Time International Ratio 1.0 (0.9-1.1) Activated Partial Thromboplast Time 22.8 SECONDS (21.0-31.0) Partial Thromboplastin Ratio 0.9 Anion Gap 11.0 mmol/L (3-11) Est Creatinine Clear Calc Drug Dose 41.1 ml/min Estimated GFR () 66.3 Estimated GFR (Non- 57.2 BUN/Creatinine Ratio 23.3 (10-20) Calcium Level 9.4 mg/dl (8.5-10.1) Magnesium Level 2.2 mg/dl (1.8-2.4) Total Bilirubin 0.8 mg/dl (0.2-1) Direct Bilirubin 0.2 mg/dl (0-0.2) Aspartate Amino Transf (AST/SGOT) 20 U/L (15-37) Alanine Aminotransferase (ALT/SGPT) 25 U/L (12-78) Alkaline Phosphatase 74 U/L (45-117) Total Creatine Kinase 61 U/L (26-192) Creatine Kinase MB 1.0 ng/ml (0.5-3.6) Creatine Kinase MB Ratio 1.6 (0-3.0) Troponin I < 0.015 ng/ml (0-0.045) Total Protein 7.1 gm/dl (6.4-8.2) Albumin 3.6 gm/dl (3.4-5.0) Lipase 127 U/L (73-393) Thyroid Stimulating Hormone (TSH) 2.300 uIu/ml (0.300-4.500) Urine Color YELLOW Urine Appearance CLEAR (CLEAR) Urine pH 6.0 (4.5-7.5) Urine Specific [place] 1.015 (1.000-1.030) Urine Protein TRACE (NEG) Urine Glucose (UA) NEG (NEG) Urine Ketones NEG (NEG) Urine Occult Blood NEG (NEG) Urine Nitrite NEG (NEG) Urine Bilirubin NEG (NEG) Urine Urobilinogen NEG (NEG) Urine Leukocyte Esterase NEG (NEG) Urine WBC (Auto) 1-5 /hpf (0-5) Urine RBC (Auto) 0-4 /hpf (0-4) Urine Hyaline Casts (Auto) 1-5 /lpf (0-5) Urine Epithelial Cells (Auto) >30 /lpf (0-5) Urine Bacteria (Auto) NEG (NEG) Laboratory results as stated above per my review. Medications Administered Medications (Trade) Dose Ordered Sig/Steven Route Start Time Stop Time Status Last Admin Dose Admin Sodium Chloride 1,000 ml @ 999 mls/hr Q1H1M STAT IV 08/14/17 07:00 08/14/17 08:00 DC 08/14/17 07:34 999 MLS/HR Ondansetron HCl (Zofran 8mg Iv) 8 mg NOW STAT IV 08/14/17 07:00 08/14/17 07:04 DC 08/14/17 07:34 8 MG ECG Indication: altered mental status Rate (beats per minute): 51 Rhythm: sinus bradycardia Findings: no acute ischemic change, no ectopy ED Course 0649: Previous medical records were reviewed. The patient was evaluated in room A12B. A complete history and physical examination was performed. 0700: Zofran 8 mg IV, NSS 1000 ml @ 999 mls/hr IV 1003: I reassessed the patient at this time. She is feeling better and resting comfortably. I discussed the results and treatment plan with the patient and her family. I answered all pertaining questions that they had. They expressed understanding and verbalized agreement. The patient will be discharged home. Medical Decision Differentials include: Acute coronary syndrome, myocardial infarction, CVA, TIA , anemia, infection, pneumonia, UTI, pyelonephritis, poor nutrition, dehydration , electrolyte disturbance, and hypoglycemia. This is an 86-year-old female who presents to the ED with a chief complaint of diarrhea. The patient has had diarrhea for the past 2 days. She states that she goes about 7 times a day. She also reported having a headache about a day after starting the diarrhea. She states also that she has not slept well for the past 1-1/2 days. Her sister states that she hallucinates a little bit this morning. She does report a history of insomnia. The patient also received a cortisone injection to the right knee 2 days ago but this occurred after she started having diarrhea. She is a type II diabetic but currently is not on medication for diabetes. The patient here is awake, alert and oriented. She is in no distress. Chest x-ray did not show acute disease. CT scan of the brain was negative for acute disease. CBC was unremarkable, complete metabolic panel was normal, glucose is 2:15. This is likely related to the cortisone injection. Troponin is negative, TSH was normal, urine did not show infection. The patient was told the results. She is given some IV fluids. She was given IV Zofran. She is felt to be stable for discharge and outpatient follow- up. Medication Reconcilliation Current Medication List: was personally reviewed by me Blood Pressure Screening Patient's blood pressure: Elevated blood pressure Blood pressure disposition: Referred to PCP Impression Primary Impression: Diarrhea Additional Impression: Weakness Scribe Attestation The scribe's documentation has been prepared under my direction and personally reviewed by me in its entirety. I confirm that the note above accurately reflects all work, treatment, procedures, and medical decision making performed by me. Departure Information Dispostion Home / Self-Care Referrals Rola Leo M.D. (PCP) Forms HOME CARE DOCUMENTATION FORM, IMPORTANT VISIT INFORMATION, WORK / SCHOOL INSTRUCTIONS Patient Instructions Diarrhea, My [facility] Additional Instructions Follow-up with your doctor for further care and evaluation in 1-2 days. Return to the emergency department for worsening or new symptoms or any concerns. You have been examined and treated today on an emergency basis only. This is not a substitute for, or an effort to provide, complete comprehensive medical care. It is impossible to recognize and treat all injuries or illnesses in a single emergency department visit. It is therefore important that you follow up closely with your doctor. Call as soon as possible for an appointment. Problem Qualifiers Primary Impression: Diarrhea Diarrhea type: unspecified type Qualified Codes: R19.7 - Diarrhea, unspecified
== END 2017-08-14 10:32 | disposition home or self-care (01) ==
LOC: C.EDB 06:37 → C.EDA 10:32
DX: R19.7 Diarrhea, unspecified (principal); R53.1 Weakness; S60.222A Contusion of left hand, initial encounter; X58.XXXA Exposure to other specified factors, initial encounter; R00.1 Bradycardia, unspecified; F32.9 Major depressive disorder, single episode, unspecified; E11.9 Type 2 diabetes mellitus without complications; K21.9 Gastro-esophageal reflux disease without esophagitis; M79.7 Fibromyalgia; H40.9 Unspecified glaucoma; I10 Essential (primary) hypertension; E03.9 Hypothyroidism, unspecified; M06.9 Rheumatoid arthritis, unspecified; Z87.891 Personal history of nicotine dependence; Z83.3 Family history of diabetes mellitus; Z82.49 Family history of ischemic heart disease and other diseases of the circulatory system

== ENCOUNTER 2021-10-22 15:40 | Inpatient (IN) ==
[2021-10-22 16:55] LABS: Alanine Aminotransferase 18 (12-78); Albumin Level 3.2 gm/dl (3.4-5.0); Aspartate Aminotransferase 24 U/L (15-37); BUN Creatinine Ratio 21.2 (10-20); Blood Urea Nitrogen 14 mg/dl (7-18); Calcium 9.3 mg/dl (8.5-10.1); Carbon Dioxide 24 mmol/L (21-32); Chloride 103 mmol/L (98-107); Est GFR (African American) 90.5 ml/min; Est GFR (Non-African American) 78.1 ml/min; Glucose 184 mg/dl (70-99); Lipase 227 U/L (73-393); Potassium 2.9 mmol/L (3.5-5.1); Sodium 137 mmol/L (136-145)
[2021-10-22 16:57] LABS: Albumin Globulin Ratio 0.9 (0.9-2); Alkaline Phosphatase 62 U/L (45-117); Bilirubin,Total 1.2 mg/dl (0.2-1); Globulin 3.6 gm/dl (2.5-4.0); Total Protein 6.8 gm/dl (6.4-8.2)
--- NOTE | 2021-10-22 17:09 | XRay Report ---
XR chest 1V not portable CLINICAL HISTORY: cough TECHNIQUE: Single frontal radiograph of the chest was obtained. Comparison: Comparison is made to chest one view 08/14/2017 FINDINGS: No lines and tubes are seen. Calcified aortic knob is seen. Radiodensities are seen in the right grea ter than left lung base. No evidence of pleural effusion or pneumothorax. IMPRESSION: Radiodensities in the right greater than left lung base, favored to represent atelectasis. ACT 112: Negative or not required by law. Electronically signed by: Gustavo Kahn M.D. 10/22/2021 5:08 PM
[2021-10-22 17:17] LABS: Hematocrit (blood only) 41.3 % (37-47); Hemoglobin 14.5 g/dL (12.0-16.0); Mean Corpuscular Hemoglobin 31.3 pg (25-34); Mean Corpuscular Hgb Conc 35.1 g/dL (32-36); Mean Platelet Volume 10.8 fL (7.4-10.4); Platelet Count 93 K/uL (130-400); RDW Coefficient of Variation 13.4 % (11.5-14.5); RDW Standard Deviation 44.2 fL (36.4-46.3); Red Blood Count 4.64 M/uL (4.2-5.4)
[2021-10-22 17:18] LABS: Eosinophils # (auto) 0.01 K/uL (0-0.5); Eosinophils % (auto) 0.2 %; Immature Granulocytes # (auto) 0.04 K/uL (0.00-0.02); Immature Granulocytes % (auto) 0.9 %; Lymphocytes # (auto) 0.54 K/uL (1.2-3.4); Lymphocytes % (auto) 11.5 %; Monocytes # (auto) 0.58 K/uL (0.11-0.59); Monocytes % (auto) 12.3 %; Neutrophils # (auto) 3.53 K/uL (1.4-6.5); Neutrophils % (auto) 75.1 %; Platelet Estimate Decreased (Normal)
[2021-10-22] MEDS ORDERED: dexAMETHasone**PF** 10 MG/ML VIAL IV ONE (19:05)
[2021-10-22] MEDS ORDERED: SODIUM CHLORIDE 0.9% 500 ML IV ONE (19:05)
--- NOTE | 2021-10-22 19:08 | Emergency Department Note ---
Impression & Plan Acute hypoxemic respiratory failure due to COVID-19, Leukopenia, Thrombocytopenia, Weakness, Cough ED Provider Note NAME: DYLAN KELLEY AGE: 89 SEX: F : 1930 ARRIVES VIA: Walk-In INFORMANT: Patient, ED PROVIDER(S): Gaudencio Taylor MD Chief Complaint: Cough and diarrhea, positive Covid HPI: Cough and diarrhea with worsening symptoms over the last several days. The patient has positive for Covid on Friday. Patient said it started proximally 1 week ago. The patient denies any shortness of breath but has had a productive colored sputum cough. Patient is a former smoker but is not smoked in many many years. No prior history of DVT or PE. Patient denies any leg swelling or abdominal pain. Patient denies any changes in medications. The patient is unvaccinated for COVID-19 and the patient's family also has similar symptoms. Patient did present to the emergency department at the behest of their primary care physician. ROS: See HPI for pertinent positives and negatives. A total of 10 systems were reviewed and otherwise negative. Past medical history: See below Surgical history: See below Social history: See below Physical Exam: GENERAL: NAD, wearing glasses, wearing a mask, non-toxic. EYE EXAM: Normal conjunctiva. PERRL, no anisocoria and EOM's grossly intact w/o pain. NECK: Supple, no nuchal rigidity, no adenopathy, non-tender. No signs of meningismus. LUNGS: Bibasilar crackles noted. Normal chest wall mechanics. HEART: NSR, no MRG. ABDOMEN: Abdomen soft, non-tender, normo-active bowel sounds, no masses, no rebound or guarding. BACK: No CVA TTP. SKIN: No rashes and no bruising. UPPER EXTREMITIES: Upper extremities are grossly normal. LOWER EXTREMITIES: Grossly normal, no edema. Negative Homans' sign bilaterally NEURO EXAM: A&O x3, cranial nerves II-XII grossly intact, normal speech, moves all 4 extremities on command w/o issue. Differential diagnoses: Infection, dehydration, metabolic abnormality, hypo/hyperglycemia, electrolyte disturbance, anemia, hypoxia, cardiac sources, intracerebral event, toxicologic, neurologic, as well as other pathologies. Course: Patient was seen and evaluated the bedside. Full history physical exam was performed. Imaging Studies: See Below Cardiac monitoring: An order was placed for continuous cardiac monitoring. The monitor shows a rate of 82 with sinus rhythm. MDM: Patient was seen due to concern for COVID-19. Patient was ordered dexamethasone IV fluids and was placed on supplemental nasal cannula oxygen given the patient's hypoxia. Blood work shows leukopenia and thrombocytopenia. The patient does have hypokalemia. Patient is Covid positive with flu and RSV negative. I did speak the on-call hospitalist Dr. Lagos and the patient was admitted to the medicine service. Critical Care: I have personally spent 36 minutes of critical care time in direct management of this patient. This includes bedside care, interpretation of diagnostic studies, and testing, discussion with consultants, patient, and family members, and other require inpatient management activities. This 36 minutes is in excess of all separately billable procedures. Past Med/Surg History Medical History Concussion Dementia Esophageal reflux Fractured metatarsal bone Rheumatoid arthritis Surgical History No pertinent past surgical history Social History Smoking Status: Never smoker Feels Safe at Home: Yes Immunizations: Unvaccinated for COVID-19. Allergies Allergies Allergy/AdvReac Type Severity Reaction Status Date / Time diazepam Allergy Intermediate HALLUCIATIO Unverified 05/04/20 14:36 NS hydrocodone Allergy Intermediate unk Unverified 05/04/20 14:36 Penicillins Allergy Intermediate DIARRHEA Unverified 05/04/20 14:36 Sulfa (Sulfonamide Allergy Intermediate ABD PAIN Unverified 05/04/20 14:36 Antibiotics) aspirin Allergy Unknown unk Verified 05/04/20 14:36 cyclobenzaprine Allergy Unknown unk Verified 05/04/20 14:36 hydrochlorothiazide Allergy Unknown unk Verified 05/04/20 14:36 meloxicam Allergy Unknown unk Verified 05/04/20 14:36 methotrexate Allergy Unknown unk Verified 05/04/20 14:36 rofecoxib Allergy Unknown UNKNOWN Unverified 05/04/20 14:36 potassium chloride Allergy Unknown Unverified 10/22/21 20:52 TAPE Allergy Intermediate REDDENED Uncoded 05/04/20 14:36 SKIN, SKIN TEARS Home Meds Home Medications Medication Instructions Recorded Confirmed acetaminophen 325 mg tablet 325 mg PO BID PRN 10/22/21 10/22/21 atorvastatin 10 mg tablet 10 mg PO 3XWK 10/22/21 10/22/21 baclofen 10 mg tablet 10 mg PO TID PRN 10/22/21 10/22/21 brimonidine 0.2 % eye drops 1 drp OPB BID 10/22/21 10/22/21 carvedilol 12.5 mg tablet 12.5 mg PO BID 10/22/21 10/22/21 cholecalciferol (vitamin D3) 125 125 mcg PO DAILY 10/22/21 10/22/21 mcg (5,000 unit) tablet (Vitamin D3) citalopram 20 mg tablet 20 mg PO DAILY 10/22/21 10/22/21 diltiazem HCl 300 mg 300 mg PO HS 10/22/21 10/22/21 capsule,extended release 24 hr dorzolamide 22.3 mg-timolol 6.8 1 drp OPB BID 10/22/21 10/22/21 mg/mL eye drops fluticasone propionate 50 2 spray INTRANASAL DAILY 10/22/21 10/22/21 mcg/actuation nasal spray,suspension hydralazine 50 mg tablet 50 mg PO BID 10/22/21 10/22/21 ipratropium 20 mcg-albuterol 100 2 puff INHALATION Q4H 10/22/21 10/22/21 mcg/actuation mist for inhalation (Combivent Respimat) latanoprost 0.005 % eye drops 1 drp OPB HS 10/22/21 10/22/21 levothyroxine 50 mcg tablet 50 mcg PO DAILYBB 10/22/21 10/22/21 lorazepam 0.5 mg tablet 0.5 mg PO HS PRN 10/22/21 10/22/21 losartan 100 mg tablet 100 mg PO QAM 10/22/21 10/22/21 olmesartan 40 mg tablet (Benicar) 40 mg PO DAILY 10/22/21 10/22/21 omeprazole 20 mg tablet,delayed 20 mg PO DAILYBB 10/22/21 10/22/21 release ondansetron HCl 4 mg tablet 4 mg PO Q8H PRN 10/22/21 10/22/21 (Zofran) prednisone 5 mg tablet 5 mg PO DAILY 10/22/21 10/22/21 sertraline 50 mg tablet 50 mg PO QAM 10/22/21 10/22/21 sitagliptin 50 mg tablet (Januvia) 50 mg PO QAM 10/22/21 10/22/21 sucralfate 100 mg/mL oral 10 ml PO BID 10/22/21 10/22/21 suspension timolol 0.5 % eye drops 1 drp OPHTHALMIC (EYE) DAILY 10/22/21 10/22/21 tramadol 50 mg tablet 50 mg PO Q6H PRN 10/22/21 10/22/21 trazodone 100 mg tablet 100 mg PO QPM 10/22/21 10/22/21 Results & Data (ED) Vital Signs Vital Signs - 24 hr 10/22/21 15:51 10/22/21 19:39 Temperature 37.0 C Temperature Source Temporal Artery Scan Pulse Rate 88 81 Respiratory Rate 22 Blood Pressure 155/71 H Blood Pressure Mean 99 Pulse Oximetry 89 L 96 Oxygen Delivery Method Room Air Nasal Cannula Oxygen Flow Rate 2 Sepsis Recent Fever Within 48 Hours No Sepsis New/Unexplained Change in Mental Status N/A Sepsis Action Taken by Nursing No Action Required Home Medications Current Medication List: was personally reviewed by me Laboratory Data Attestation: I reviewed the patient's lab results. Result diagrams: 10/22/21 16:06 10/22/21 16:06 Lab Results 10/22/21 10/22/21 10/22/21 Range/Units 16:06 16:06 16:25 WBC 4.70 L (4.8-10.8) K/uL RBC 4.64 (4.2-5.4) M/uL Hgb 14.5 (12.0-16.0) g/dL Hct 41.3 (37-47) % MCV 89.0 (80-100) fL MCH 31.3 (25-34) pg MCHC 35.1 (32-36) g/dL RDW Std Deviation 44.2 (36.4-46.3) fL RDW Coeff of Yifan 13.4 (11.5-14.5) % Plt Count 93 L (130-400) K/uL MPV 10.8 H (7.4-10.4) fL Immature Gran % (Auto) 0.9 % Neut % (Auto) 75.1 % Lymph % (Auto) 11.5 % [place] % (Auto) 12.3 % Eos % (Auto) 0.2 % Baso % (Auto) 0.0 % Neut # (Auto) 3.53 (1.4-6.5) K/uL Lymph # (Auto) 0.54 L (1.2-3.4) K/uL [place] # (Auto) 0.58 (0.11-0.59) K/uL Eos # (Auto) 0.01 (0-0.5) K/uL Baso # (Auto) 0.00 (0-0.2) K/uL Immature Gran # (Auto) 0.04 H (0.00-0.02) K/uL Platelet Estimate Decreased L (Normal) Sodium 137 (136-145) mmol/L Potassium 2.9 L (3.5-5.1) mmol/L Chloride 103 (98-107) mmol/L Carbon Dioxide 24 (21-32) mmol/L Anion Gap 10.0 (3-11) BUN 14 (7-18) mg/dl Creatinine 0.68 (0.6-1.2) mg/dl Est Cr Clr Drug Dosing Not Reportable Est GFR ( Amer) 90.5 ml/min Est GFR (Non-Af Amer) 78.1 ml/min BUN/Creatinine Ratio 21.2 H (10-20) Glucose 184 H (70-99) mg/dl Calcium 9.3 (8.5-10.1) mg/dl Magnesium Cancelled Total Bilirubin 1.2 H (0.2-1) mg/dl AST 24 (15-37) U/L ALT 18 (12-78) Alkaline Phosphatase 62 (45-117) U/L Total Protein 6.8 (6.4-8.2) gm/dl Albumin 3.2 L (3.4-5.0) gm/dl Globulin 3.6 (2.5-4.0) gm/dl Albumin/Globulin Ratio 0.9 (0.9-2) Lipase 227 (73-393) U/L SARS-CoV-2 (PCR) (Negative) Influenza Type A (PCR) (Neg) Influenza Type B (PCR) (Neg) RSV (RT-PCR) (Neg) 10/22/21 Range/Units Unknown WBC (4.8-10.8) K/uL RBC (4.2-5.4) M/uL Hgb (12.0-16.0) g/dL Hct (37-47) % MCV (80-100) fL MCH (25-34) pg MCHC (32-36) g/dL RDW Std Deviation (36.4-46.3) fL RDW Coeff of Yifan (11.5-14.5) % Plt Count (130-400) K/uL MPV (7.4-10.4) fL Immature Gran % (Auto) % Neut % (Auto) % Lymph % (Auto) % [place] % (Auto) % Eos % (Auto) % Baso % (Auto) % Neut # (Auto) (1.4-6.5) K/uL Lymph # (Auto) (1.2-3.4) K/uL [place] # (Auto) (0.11-0.59) K/uL Eos # (Auto) (0-0.5) K/uL Baso # (Auto) (0-0.2) K/uL Immature Gran # (Auto) (0.00-0.02) K/uL Platelet Estimate (Normal) Sodium (136-145) mmol/L Potassium (3.5-5.1) mmol/L Chloride (98-107) mmol/L Carbon Dioxide (21-32) mmol/L Anion Gap (3-11) BUN (7-18) mg/dl Creatinine (0.6-1.2) mg/dl Est Cr Clr Drug Dosing Est GFR ( Amer) ml/min Est GFR (Non-Af Amer) ml/min BUN/Creatinine Ratio (10-20) Glucose (70-99) mg/dl Calcium (8.5-10.1) mg/dl Magnesium Total Bilirubin (0.2-1) mg/dl AST (15-37) U/L ALT (12-78) Alkaline Phosphatase (45-117) U/L Total Protein (6.4-8.2) gm/dl Albumin (3.4-5.0) gm/dl Globulin (2.5-4.0) gm/dl Albumin/Globulin Ratio (0.9-2) Lipase (73-393) U/L SARS-CoV-2 (PCR) POSITIVE A* (Negative) Influenza Type A (PCR) Negative (Neg) Influenza Type B (PCR) Negative (Neg) RSV (RT-PCR) Negative (Neg) Administered Medications Discontinued Medications Dexamethasone Sodium Phosphate (DexamethasonePf 10 Mg/Ml Vial) 6 mg IV NOW ONE Stop: 10/22/21 19:06 Last Admin: 10/22/21 20:20 Dose: 6 mg Documented by: [id number] Sodium Chloride (Nss) 500 mls @ 999 mls/hr IV .Q31M ONE Stop: 10/22/21 19:35 Last Admin: 10/22/21 20:21 Dose: 999 mls/hr Documented by: [id number] Imaging Data Radiologist's Impression: Chest X-Ray 10/22/21 16:00 XR chest 1V not portable CLINICAL HISTORY: cough TECHNIQUE: Single frontal radiograph of the chest was obtained. Comparison: Comparison is made to chest one view 08/14/2017 FINDINGS: No lines and tubes are seen. Calcified aortic knob is seen. Radiodensities are seen in the right greater than left lung base. No evidence of pleural effusion or pneumothorax. IMPRESSION: Radiodensities in the right greater than left lung base, favored to represent atelectasis. ACT 112: Negative or not required by law. Electronically signed by: Gustavo Kahn M.D. 10/22/2021 5:08 PM Discharge Plan Visit Data Chief Complaint: Diarrhea Stated Complaint: COVID +, DIARRHEA, UNABLE TO EAT ED Provider: Gaudencio Taylor Discharge Problem: Acute hypoxemic respiratory failure due to COVID-19, Leukopenia, Thrombocytopenia, Weakness, Cough Patient Disposition: Admitted As Inpatient Forms Stand Alone Forms: My [facility] Prescriptions Prescriptions: No Action latanoprost 0.005 % drops 1 drp OPB HS RF: 0 acetaminophen 325 mg Tablet 325 mg PO BID PRN (Reason: Pain) RF: 0 atorvastatin 10 mg tablet 10 mg PO 3XWK RF: 0 trazodone 100 mg tablet 100 mg PO QPM RF: 0 diltiazem HCl 300 mg capsule,extended release 24hr 300 mg PO HS RF: 0 levothyroxine 50 mcg tablet 50 mcg PO DAILYBB RF: 0 brimonidine 0.2 % drops 1 drp OPB BID RF: 0 dorzolamide-timolol 22.3-6.8 mg/mL drops 1 drp OPB BID RF: 0 hydralazine 50 mg tablet 50 mg PO BID RF: 0 losartan 100 mg tablet 100 mg PO QAM RF: 0 sertraline 50 mg tablet 50 mg PO QAM RF: 0 Januvia 50 mg tablet 50 mg PO QAM RF: 0 cholecalciferol (vitamin D3) [Vitamin D3] 125 mcg (5,000 unit) Tablet 125 mcg PO DAILY RF: 0 carvedilol 12.5 mg Tablet 12.5 mg PO BID RF: 0 sucralfate 100 mg/mL Suspension 10 ml PO BID RF: 0 ondansetron HCl [Zofran] 4 mg Tablet 4 mg PO Q8H PRN (Reason: Nausea) RF: 0 prednisone 5 mg Tablet 5 mg PO DAILY RF: 0 tramadol 50 mg Tablet 50 mg PO Q6H PRN (Reason: Pain) RF: 0 citalopram 20 mg Tablet 20 mg PO DAILY RF: 0 lorazepam 0.5 mg Tablet 0.5 mg PO HS PRN (Reason: Sleep) RF: 0 baclofen 10 mg Tablet 10 mg PO TID PRN (Reason: Muscle Spasm) RF: 0 timolol 0.5 % Drops 1 drp OPHTHALMIC (EYE) DAILY RF: 0 fluticasone propionate 50 mcg/actuation [place],Suspension 2 spray INTRANASAL DAILY RF: 0 olmesartan [Benicar] 40 mg Tablet 40 mg PO DAILY RF: 0 omeprazole 20 mg Tablet,Delayed Release (Dr/Ec) 20 mg PO DAILYBB RF: 0 Combivent Respimat 20-100 mcg/actuation Mist 2 puff INHALATION Q4H RF: 0 Referrals Referrals: Rola Leo [Primary Care Provider] - Discharge Problem: Leukopenia Qualifiers: Leukopenia type: lymphocytopenia Qualified Code(s): D72.810 - Lymphocytopenia
[2021-10-22] MEDS ORDERED: POTASSIUM CHLORIDE 40 MEQ in SODIUM CHLORIDE 0.9% 1000ML 1,000 ML IV ONE (19:24)
[2021-10-22] MEDS ORDERED: DOXYCYCLINE HYCLATE 100 MG in DEXTROSE 5% 100 ML IV STA (19:25)
[2021-10-22] MEDS ORDERED: POTASSIUM CHLORIDE PWD 20 MEQ PACK PO STA (19:59)
[2021-10-22] MEDS ORDERED: ALBUT/IPRATROP 3MG/0.5MG NEB 3 ML VIAL NEB STA (20:00)
--- NOTE | 2021-10-22 20:07 | History & Physical Report ---
Date of Service October 22, 2021 Assessment & Plan (1) Acute hypoxemic respiratory failure due to COVID-19: Plan: Secondary to severe COVID-19 pneumonia Superimposed bacterial infection hypertension, elevated secondary to anxiety/missed home medications hyperlipidemia on statin Rx rheumatoid arthritis, stable, currently not on daily prednisone Rx DM2 on oral medications, last hemoglobin A1c of 6.21 November 2017 Hypokalemia secondary to poor p.o. intake dementia past tobacco abuse Medical telemetry Supplemental O2 Decadron and Remdesivir for severe COVID-19 pneumonia. (Patient daughter was counseled regarding potential adverse effects from Remdesivir therapy and provided with patient education sheet.) Doxycycline for superimposed bacterial infection Pulmonary consult if without improvement. Replace potassium Basal insulin, ISS BG goal 1 10-1 40, carb count coverage, update hemoglobin A1c Delirium precautions DVT prophylaxis per Lovenox subcu Full code as per patient's family. Patient daughters requesting updates from providers. Ms. Brunilda Cali, contact #[phone]. Mariella PerdomoMirian Alireza, contact #[phone]. Text document was generated using [employer] voice recognition software. It may contain grammatical or spelling errors. Kindly contact undersigned for clarification of any documentation item in question. History of Present Illness Chief Complaint: Cough, shortness of breath, Covid 19 Primary Care Provider: Rola Leo History obtained from patient, family, and records. History somewhat limited from patient secondary to anxiety and mild hearing impairment. Medical history significant for hypertension, hyperlipidemia, rheumatoid arthritis, GERD, DM2 on oral medications, dementia, past tobacco abuse 5 days ago, patient noted to have junky cough symptoms with shortness of breath. No chest pain. Poor appetite as per family. Positive sick COVID-19 contacts. Outpatient COVID-19 test from 3 days ago was positive. Patient has not received COVID-19 vaccination. Patient brought to the ER for evaluation. O2 sats 80s on room air. IV Decadron given at the ER. 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 Allergies Allergy/AdvReac Type Severity Reaction Status Date / Time diazepam Allergy Intermediate HALLUCIATIO Unverified 05/04/20 14:36 NS hydrocodone Allergy Intermediate unk Unverified 05/04/20 14:36 Penicillins Allergy Intermediate DIARRHEA Unverified 05/04/20 14:36 Sulfa (Sulfonamide Allergy Intermediate ABD PAIN Unverified 05/04/20 14:36 Antibiotics) aspirin Allergy Unknown unk Verified 05/04/20 14:36 cyclobenzaprine Allergy Unknown unk Verified 05/04/20 14:36 hydrochlorothiazide Allergy Unknown unk Verified 05/04/20 14:36 meloxicam Allergy Unknown unk Verified 05/04/20 14:36 methotrexate Allergy Unknown unk Verified 05/04/20 14:36 rofecoxib Allergy Unknown UNKNOWN Unverified 05/04/20 14:36 potassium chloride Allergy Unknown Unverified 10/22/21 20:52 TAPE Allergy Intermediate REDDENED Uncoded 05/04/20 14:36 SKIN, SKIN TEARS Home Medications Medication Instructions Recorded Confirmed Type acetaminophen 325 mg tablet 325 mg PO BID PRN 10/22/21 10/22/21 History atorvastatin 10 mg tablet 10 mg PO 3XWK 10/22/21 10/22/21 History brimonidine 0.2 % eye drops 1 drp OPB BID 10/22/21 10/22/21 History cholecalciferol (vitamin D3) 125 125 mcg PO DAILY 10/22/21 10/22/21 History mcg (5,000 unit) tablet (Vitamin D3) diltiazem HCl 300 mg 300 mg PO HS 10/22/21 10/22/21 History capsule,extended release 24 hr dorzolamide 22.3 mg-timolol 6.8 1 drp OPB BID 10/22/21 10/22/21 History mg/mL eye drops hydralazine 50 mg tablet 50 mg PO BID 10/22/21 10/22/21 History latanoprost 0.005 % eye drops 1 drp OPB HS 10/22/21 10/22/21 History levothyroxine 50 mcg tablet 50 mcg PO DAILYBB 10/22/21 10/22/21 History losartan 100 mg tablet 100 mg PO QAM 10/22/21 10/22/21 History sertraline 50 mg tablet 50 mg PO QAM 10/22/21 10/22/21 History sitagliptin 50 mg tablet (Januvia) 50 mg PO QAM 10/22/21 10/22/21 History trazodone 100 mg tablet 100 mg PO QPM 10/22/21 10/22/21 History Past Med/Surg History Medical History Concussion Dementia Esophageal reflux Fractured metatarsal bone Rheumatoid arthritis Surgical History No pertinent past surgical history Social History Smoking Status: Never smoker Feels Safe at Home: Yes Review of Systems Review of Systems: Could not be reliably obtained Physical Exam Physical Exam: GENERAL: Slightly uncomfortable, anxious, no respiratory distress SKIN: Normal color, warm HEENT: [place] palpebral conjunctivae, no ptosis, dry buccal mucosa, nasal cannula in place NECK : Supple, no tenderness CHEST : Decreased breath sounds, expiratory wheezes, no tenderness HEART : RRR, no obvious murmurs ABDOMEN: Some distention, nontender EXTREMITIES : No LE swelling/tenderness, no other conspicuous deformities noted NEUROLOGIC : Coherent, no facial asymmetry, slightly hard of hearing, no other gross focality Results & Data Results & Data ([facility]) Vital Signs (Past 12 Hours) Vital Signs Temp Pulse Resp BP Pulse Ox 10/22/21 19:39 81 96 10/22/21 15:51 37.0 C 88 22 155/71 H 89 L Laboratory Results Laboratory Results WBC 4.70 K/uL (4.8-10.8) L 10/22/21 16:06 RBC 4.64 M/uL (4.2-5.4) 10/22/21 16:06 Hgb 14.5 g/dL (12.0-16.0) 10/22/21 16:06 Hct 41.3 % (37-47) 10/22/21 16:06 MCV 89.0 fL (80-100) 10/22/21 16:06 MCH 31.3 pg (25-34) 10/22/21 16:06 MCHC 35.1 g/dL (32-36) 10/22/21 16:06 RDW Std Deviation 44.2 fL (36.4-46.3) 10/22/21 16:06 RDW Coeff of Yifan 13.4 % (11.5-14.5) 10/22/21 16:06 Plt Count 93 K/uL (130-400) L 10/22/21 16:06 MPV 10.8 fL (7.4-10.4) H 10/22/21 16:06 Immature Gran % (Auto) 0.9 % 10/22/21 16:06 Neut % (Auto) 75.1 % 10/22/21 16:06 Lymph % (Auto) 11.5 % 10/22/21 16:06 [place] % (Auto) 12.3 % 10/22/21 16:06 Eos % (Auto) 0.2 % 10/22/21 16:06 Baso % (Auto) 0.0 % 10/22/21 16:06 Neut # (Auto) 3.53 K/uL (1.4-6.5) 10/22/21 16:06 Lymph # (Auto) 0.54 K/uL (1.2-3.4) L 10/22/21 16:06 [place] # (Auto) 0.58 K/uL (0.11-0.59) 10/22/21 16:06 Eos # (Auto) 0.01 K/uL (0-0.5) 10/22/21 16:06 Baso # (Auto) 0.00 K/uL (0-0.2) 10/22/21 16:06 Immature Gran # (Auto) 0.04 K/uL (0.00-0.02) H 10/22/21 16:06 Platelet Estimate Decreased (Normal) L 10/22/21 16:06 Sodium 137 mmol/L (136-145) 10/22/21 16:06 Potassium 2.9 mmol/L (3.5-5.1) L 10/22/21 16:06 Chloride 103 mmol/L (98-107) 10/22/21 16:06 Carbon Dioxide 24 mmol/L (21-32) 10/22/21 16:06 Anion Gap 10.0 (3-11) 10/22/21 16:06 BUN 14 mg/dl (7-18) 10/22/21 16:06 Creatinine 0.68 mg/dl (0.6-1.2) 10/22/21 16:06 Est Cr Clr Drug Dosing Not Reportable 10/22/21 16:06 Est GFR ( Amer) 90.5 ml/min 10/22/21 16:06 Est GFR (Non-Af Amer) 78.1 ml/min 10/22/21 16:06 BUN/Creatinine Ratio 21.2 (10-20) H 10/22/21 16:06 Glucose 184 mg/dl (70-99) H 10/22/21 16:06 Calcium 9.3 mg/dl (8.5-10.1) 10/22/21 16:06 Magnesium Cancelled 10/22/21 16:25 Total Bilirubin 1.2 mg/dl (0.2-1) H 10/22/21 16:06 AST 24 U/L (15-37) 10/22/21 16:06 ALT 18 (12-78) 10/22/21 16:06 Alkaline Phosphatase 62 U/L (45-117) 10/22/21 16:06 Total Protein 6.8 gm/dl (6.4-8.2) 10/22/21 16:06 Albumin 3.2 gm/dl (3.4-5.0) L 10/22/21 16:06 Globulin 3.6 gm/dl (2.5-4.0) 10/22/21 16:06 Albumin/Globulin Ratio 0.9 (0.9-2) 10/22/21 16:06 Lipase 227 U/L (73-393) 10/22/21 16:06 Impressions Chest X-Ray 10/22/21 16:00 XR chest 1V not portable CLINICAL HISTORY: cough TECHNIQUE: Single frontal radiograph of the chest was obtained. Comparison: Comparison is made to chest one view 08/14/2017 FINDINGS: No lines and tubes are seen. Calcified aortic knob is seen. Radiodensities are seen in the right greater than left lung base. No evidence of pleural effusion or pneumothorax. IMPRESSION: Radiodensities in the right greater than left lung base, favored to represent atelectasis. ACT 112: Negative or not required by law. Electronically signed by: Gustavo Kahn M.D. 10/22/2021 5:08 PM
[2021-10-22] MEDS ORDERED: REMDESIVIR 200 MG in SODIUM CHLORIDE 0.9% 210 ML IV STA (20:13)
[2021-10-22 20:27] LABS: Influenza A virus by PCR Negative (Neg); Influenza B virus by PCR Negative (Neg); RSV by PCR Negative (Neg)
[2021-10-22 20:36] LABS: SARS CoV2 RNA(COVID-19) InHosp POSITIVE (Negative)
[2021-10-22] MEDS ORDERED: carvediloL 12.5 MG TAB PO SCH (21:30)
[2021-10-22 21:43] LABS: Magnesium 1.8 mg/dl (1.8-2.4)
[2021-10-22] MEDS ORDERED: traMADol HCL 50 MG TABLET PO PRN (21:43)
[2021-10-22] MEDS ORDERED: GLUCOSE 10 TABS/TUBE PO PRN ×2 (22:00→23:25)
[2021-10-22] MEDS ORDERED: GLUCAGON FOR INJ 1 MG VIAL IM PRN (22:00)
[2021-10-22] MEDS ORDERED: CARBOHYDRATES FOR HYPOGLYCEMIA PO PRN ×2 (22:00→23:25)
[2021-10-22] MEDS ORDERED: GLUCOSE 40% GEL 15 GM TUBE PO PRN ×2 (22:00→23:25)
[2021-10-22] MEDS ORDERED: DEXTROSE 50% 50 ML SYRINGE IV PRN ×2 (22:00→23:25)
[2021-10-22] MEDS ORDERED: MAGNESIUM SULFATE / D5W 1 GM/100 ML BAG IV ONE (22:13)
[2021-10-22] MEDS ORDERED: POTASSIUM CHLORIDE PWD 20 MEQ PACK PO ONE (23:00)
[2021-10-22] MEDS ORDERED: IPRATROPIUM BROMIDE NEB SOLN 0.02% 2.5 ML VIAL INH PRN (23:25)
[2021-10-22] MEDS ORDERED: BACLOFEN 10 MG TAB PO PRN (23:25)
[2021-10-22] MEDS ORDERED: GLUCAGON FOR INJ 1 MG VIAL SQ PRN (23:25)
[2021-10-22] MEDS ORDERED: PROMETHAZINE HCL 6.25 MG in SODIUM CHLORIDE 0.9% 50 ML IV PRN (23:25)
[2021-10-22] MEDS ORDERED: MELATONIN 3 MG TAB PO PRN (23:25)
[2021-10-22] MEDS ORDERED: XOPENEX/ATROVENT 1.25mg/0.5MG NEB COMBO NEB PRN (23:25)
[2021-10-22] MEDS ORDERED: INSULIN ASPART 100 UNITS/ML 3 ML PEN SC SCH (23:25)
[2021-10-22] MEDS ORDERED: ACETAMINOPHEN 325 MG TAB PO PRN (23:25)
[2021-10-22] MEDS ORDERED: LEVALBUTEROL 1.25MG/0.5ML NEB INH PRN (23:25)
[2021-10-23] MEDS: dilTIAZem HCL 300 MG CAPCR PO SCH ×2 (00:22→19:57)
[2021-10-23] MEDS: hydrALAZINE TAB 50 MG TAB PO SCH ×3 (00:23→19:57)
[2021-10-23] MEDS: SODIUM CHLORIDE 0.9% 10ML FLUSH IV SCH ×2 (00:23→19:50)
[2021-10-23] MEDS: INSULIN GLARGINE SOLOSTAR 100 UNITS/ML 3 ML PEN SC SCH ×2 (00:50→20:37)
[2021-10-23] MEDS: INSULIN ASPART 100 UNITS/ML VIAL SC SCH ×5 (00:55→20:37)
[2021-10-23] MEDS: BRIMONIDINE TARTRATE 0.2% 5ML OPB SCH ×3 (00:59→20:38)
[2021-10-23] MEDS: ATORVASTATIN 10 MG TAB PO SCH (01:01)
[2021-10-23] MEDS: DORZOLAMIDE/TIMOLOL 22.3/6.8MG/ML 10 ML BTL OPB SCH ×3 (01:01→20:38)
[2021-10-23] MEDS: LATANOPROST 0.005% OP SOLN 2.5 ML BTL OPB SCH ×2 (01:02→21:26)
[2021-10-23] MEDS: LEVOTHYROXINE SODIUM 50 MCG TABLET PO SCH (05:34)
[2021-10-23 05:46] LABS: Hematocrit (blood only) 38.6 % (37-47); Hemoglobin 13.2 g/dL (12.0-16.0); Mean Corpuscular Hemoglobin 31.1 pg (25-34); Mean Corpuscular Hgb Conc 34.2 g/dL (32-36); Mean Corpuscular Volume 90.8 fL (80-100); RDW Coefficient of Variation 13.6 % (11.5-14.5); RDW Standard Deviation 45.6 fL (36.4-46.3); Red Blood Count 4.25 M/uL (4.2-5.4); White Blood Count 2.24 K/uL (4.8-10.8)
[2021-10-23 06:14] LABS: Mean Platelet Volume 10.8 fL (7.4-10.4); Platelet Count 89 K/uL (130-400)
[2021-10-23 06:15] LABS: Immature Granulocytes # (auto) 0.03 K/uL (0.00-0.02); Immature Granulocytes % (auto) 1.3 %; Lymphocytes # (auto) 0.47 K/uL (1.2-3.4); Monocytes % (auto) 13.4 %; Neutrophils # (auto) 1.44 K/uL (1.4-6.5); Neutrophils % (auto) 64.3 %; RBC Morphology Unremarkable
[2021-10-23 06:23] LABS: Albumin Globulin Ratio 0.8 (0.9-2); Albumin Level 2.6 gm/dl (3.4-5.0); BUN Creatinine Ratio 23.2 (10-20); Bilirubin,Total 0.6 mg/dl (0.2-1); C Reactive Protein 3.13 mg/dl (0-0.29); Calcium 8.4 mg/dl (8.5-10.1); Creatinine Clr Calc Pharmacy 60.3 ml/min; Est GFR (African American) 96.5 ml/min; Est GFR (Non-African American) 83.2 ml/min; Globulin 3.1 gm/dl (2.5-4.0); Potassium 4.5 mmol/L (3.5-5.1); Total Protein 5.7 gm/dl (6.4-8.2)
[2021-10-23] MEDS ORDERED: TIMOLOL MALEATE 0.5% OP SOLN 5 ML BTL OP SCH (09:00)
[2021-10-23 09:17] LABS: Estimated Average Glucose 148 mg/dl; Hemoglobin A1C 6.8 % (4.5-5.6)
[2021-10-23] MEDS: DOXYCYCLINE HYCLATE 100 MG CAP PO SCH ×2 (10:23→19:56)
[2021-10-23] MEDS: OLMESARTAN MEDOXOMIL 40 MG TAB PO SCH (10:23)
[2021-10-23] MEDS: SERTRALINE HCL 50 MG TABLET PO SCH (10:24)
[2021-10-23] MEDS: ENOXAPARIN INJ 30 MG/0.3 ML SYR SQ SCH (10:24)
--- NOTE | 2021-10-23 15:45 | Hospitalist Progress Note ---
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 Positive sick COVID- 19 contacts. Outpatient COVID-19 test from 3 days ago CLAIM REPRESENTATIVE was positive [10/19]. At presentation she was saturating in the 80s on room air. She is being managed for the following: #. Acute hypoxic respiratory failure #. Covid pneumonia Vaccine status/month: Not vaccinated; S/S : 5 days CLAIM REPRESENTATIVE; Tested Positive: 10/19 outpatient and 10/22 in ED Admitting pro-Ketan: Negative Admitting imaging: CXRRadiodensities in the right greater than left lung base, favored to represent atelectasis. Clinically patient on room air at bedside, no complaint of shortness of breath or chest pain, decreased breath sounds but no crackles appreciated. Encourage every hour incentive spirometer/flutter valve/self proning as able Tessalon Perles and Mucinex for cough, supplemental O2 BNP: Negative for age, 76 Strict I's and O's; as needed IV Lasix; monitor BMP Monitor LFT daily when on remdesivir; sliding scale and glycemic pharmacy if needed when on steroid. Continue with 10/22 Decadron and 10/22 remdesivir. #. Concern for atypical pneumonia Presenting signs and symptoms cough with yellow sputum Continue with doxycycline 10/23 #. Chronic medical condition: HTN, HLD, RA, DM2 [last A1c 6.21 November 2017], dementia, past tobacco abuse Resume home meds as appropriate. Delirium precautions On insulin sliding scale Patient's daughters: Ms. Brunilda Cali, contact #[phone]. Ms. Mirian Lay, contact #[phone]. DVT prophylaxis per Lovenox subcu Full code as per patient's family. Admission and Anticipated Discharge Date Admission Date: October 22, 2021 Subjective Patient was sitting up in bed, on room air, NAD, no new acute events overnight per RN. Patient AOx3, getting ready to eat her lunch. Patient denies any fever/headache/chills/chest pain/palpitation/shortness of breath/other review of symptoms. Physical Exam Physical Exam: GENERAL: Alert and oriented x3. NAD, on RA. HEENT: No pallor, no icterus. Pupils equal, round and reactive to light. Oral mucosa moist. NECK: No JVD, no neck masses. HEART: S1 and S2 heard. Regular rate and rhythm. No murmur, no gallop. RESPIRATORY SYSTEM: Normal AP diameter. No accessory muscle use. No wheezing, no crackles. Decreased breath sounds. ABDOMEN: Soft, bowel sounds present, nontender, no distention. CENTRAL NERVOUS SYSTEM: No facial droop. Speech is clear. Obeys simple comm ands. Moves extremities. EXTREMITIES: No edema, no erythema seen. Results & Data Results & Data ([facility]) Vital Signs (Past 12 Hours) Vital Signs Temp Pulse Resp BP Pulse Ox Pulse Ox 10/23/21 10:18 94 10/23/21 10:13 37.1 C 63 22 175/77 H 94 10/23/21 04:43 53 L 16 97
[2021-10-23] MEDS: dexAMETHasone 6 MG in SYRINGE 0 ML IV SCH (17:45)
[2021-10-23] MEDS: REMDESIVIR 100 MG in SODIUM CHLORIDE 0.9% 230 ML IV SCH (19:50)
[2021-10-23] MEDS: traZODone HCL 100 MG TAB PO SCH (19:56)
[2021-10-24] MEDS: LEVOTHYROXINE SODIUM 50 MCG TABLET PO SCH (05:46)
[2021-10-24 06:59] LABS: Hematocrit (blood only) 46.6 % (37-47); Hemoglobin 15.9 g/dL (12.0-16.0); Mean Corpuscular Hemoglobin 31.4 pg (25-34); Mean Corpuscular Hgb Conc 34.1 g/dL (32-36); Mean Corpuscular Volume 91.9 fL (80-100); Mean Platelet Volume 11.1 fL (7.4-10.4); Platelet Count 125 K/uL (130-400); Red Blood Count 5.07 M/uL (4.2-5.4); White Blood Count 3.31 K/uL (4.8-10.8)
[2021-10-24] MEDS: OLMESARTAN MEDOXOMIL 40 MG TAB PO SCH (07:31)
[2021-10-24] MEDS: SERTRALINE HCL 50 MG TABLET PO SCH (07:31)
[2021-10-24] MEDS: hydrALAZINE TAB 50 MG TAB PO SCH ×2 (07:31→20:57)
[2021-10-24] MEDS: DOXYCYCLINE HYCLATE 100 MG CAP PO SCH ×2 (07:31→20:57)
[2021-10-24] MEDS: ENOXAPARIN INJ 30 MG/0.3 ML SYR SQ SCH (07:32)
[2021-10-24] MEDS: LOSARTAN POTASSIUM 50 MG TAB PO SCH (07:32)
[2021-10-24] MEDS: BRIMONIDINE TARTRATE 0.2% 5ML OPB SCH ×2 (07:33→20:58)
[2021-10-24] MEDS: DORZOLAMIDE/TIMOLOL 22.3/6.8MG/ML 10 ML BTL OPB SCH ×2 (07:34→20:58)
[2021-10-24 07:45] LABS: Bilirubin Direct 0.2 mg/dl (0-0.2); Bilirubin,Total 0.9 mg/dl (0.2-1); Total Protein 6.6 gm/dl (6.4-8.2)
[2021-10-24] MEDS: INSULIN ASPART 100 UNITS/ML VIAL SC SCH ×4 (08:30→21:00)
[2021-10-24] MEDS: dexAMETHasone 6 MG in SYRINGE 0 ML IV SCH (16:28)
--- NOTE | 2021-10-24 19:08 | Hospitalist Progress Note ---
Date of Service October 24, 2021 Assessment & Plan (1) Acute hypoxemic respiratory failure due to COVID-19: (2) Atypical pneumonia: Plan: 89-year-old lady with PMH of HTN, HLD, RA, GERD, DM2 on oral medication, dementia and past tobacco abuse presented to our ED 10/22 with complaint of junky cough symptoms with shortness of breath since 5 days [employer]. Positive sick COVID- 19 contacts. Outpatient COVID-19 test from 3 days ago [employer] was positive [10/19]. At presentation she was saturating in the 80s on room air. She is being managed for the following: #. Acute hypoxic respiratory failure #. Covid pneumonia Vaccine status/month: Not vaccinated; S/S : 5 days [employer]; Tested Positive: 10/19 outpatient and 10/22 in ED Admitting pro-Ketan: Negative Admitting imaging: CXRRadiodensities in the right greater than left lung base, favored to represent atelectasis. Clinically patient on room air at bedside, no complaint of shortness of breath or chest pain, decreased breath sounds but no crackles appreciated. Encourage every hour incentive spirometer/flutter valve/self proning as able Tessalon Perles and Mucinex for cough, supplemental O2 BNP: Negative for age, 784 Strict I's and O's; as needed IV Lasix; monitor BMP Monitor LFT daily when on remdesivir; sliding scale and glycemic pharmacy if needed when on steroid. Continue with 10/22 Decadron and 10/22 remdesivir. #. Concern for atypical pneumonia Presenting signs and symptoms cough with yellow sputum Continue with doxycycline 10/23 #. Chronic medical condition: HTN, HLD, RA, DM2 [last A1c 6.21 November 2017], dementia, past tobacco abuse Resume home meds as appropriate. Delirium precautions On insulin sliding scale Patient's daughters: Ms. Brunilda Cali, contact #[phone]. Ms. Mirian Lay, contact #[phone]. DVT prophylaxis per Lovenox subcu Full code as per patient's family. Disposition: PT/OT recommending placement. CM to assist with DC planning. Patient medically stable for discharge as of now unless no new issues arises overnight. Admission and Anticipated Discharge Date Admission Date: October 22, 2021 Subjective Patient was sitting up in chair, on room air, NAD, no new acute events overnight per RN. Patient AOx3,. Patient denies any fever/headache/chills/chest pain/palpitation/shortness of breath/other review of symptoms. Physical Exam Physical Exam: GENERAL: Alert and oriented x3. NAD, on RA. HEENT: No pallor, no icterus. Pupils equal, round and reactive to light. Oral mucosa moist. NECK: No JVD, no neck masses. HEART: S1 and S2 heard. Regular rate and rhythm. No murmur, no gallop. RESPIRATORY SYSTEM: Normal AP diameter. No accessory muscle use. No wheezing, no crackles. Decreased breath sounds. ABDOMEN: Soft, bowel sounds present, nontender, no distention. CENTRAL NERVOUS SYSTEM: No facial droop. Speech is clear. Obeys simple commands. Moves extremities. EXTREMITIES: No edema, no erythema seen. Results & Data Results & Data ([facility]) Vital Signs (Past 12 Hours) Vital Signs Temp Pulse Pulse Resp BP Pulse Ox Pulse Ox 10/24/21 15:46 85 10/24/21 15:40 92 10/24/21 15:27 36.4 C L 88 20 150/86 H 93 10/24/21 14:20 92 10/24/21 12:00 36.9 C 74 20 172/77 H 93 10/24/21 09:33 56 L 10/24/21 07:57 36.5 C 67 20 187/74 H 95 Pulse Ox 10/24/21 15:46 10/24/21 15:40 10/24/21 15:27 10/24/21 14:20 92 10/24/21 12:00 10/24/21 09:33 10/24/21 07:57
[2021-10-24] MEDS: REMDESIVIR 100 MG in SODIUM CHLORIDE 0.9% 230 ML IV SCH (20:52)
[2021-10-24] MEDS: traZODone HCL 100 MG TAB PO SCH (20:57)
[2021-10-24] MEDS: ATORVASTATIN 10 MG TAB PO SCH (20:57)
[2021-10-24] MEDS: dilTIAZem HCL 300 MG CAPCR PO SCH (20:57)
[2021-10-24] MEDS: LATANOPROST 0.005% OP SOLN 2.5 ML BTL OPB SCH (21:00)
[2021-10-24] MEDS: INSULIN GLARGINE SOLOSTAR 100 UNITS/ML 3 ML PEN SC SCH (21:02)
[2021-10-24] MEDS: SODIUM CHLORIDE 0.9% 10ML FLUSH IV SCH (22:08)
[2021-10-25] MEDS: LEVOTHYROXINE SODIUM 50 MCG TABLET PO SCH (06:28)
[2021-10-25 07:41] LABS: Hematocrit (blood only) 42.8 % (37-47); Mean Corpuscular Hemoglobin 31.2 pg (25-34); Mean Platelet Volume 10.7 fL (7.4-10.4); Platelet Count 138 K/uL (130-400); RDW Coefficient of Variation 13.7 % (11.5-14.5); Red Blood Count 4.81 M/uL (4.2-5.4); White Blood Count 4.39 K/uL (4.8-10.8)
[2021-10-25] MEDS: ENOXAPARIN INJ 30 MG/0.3 ML SYR SQ SCH (07:59)
[2021-10-25] MEDS: SERTRALINE HCL 50 MG TABLET PO SCH (07:59)
[2021-10-25] MEDS: OLMESARTAN MEDOXOMIL 40 MG TAB PO SCH (08:00)
[2021-10-25] MEDS: LOSARTAN POTASSIUM 50 MG TAB PO SCH (08:00)
[2021-10-25] MEDS: DOXYCYCLINE HYCLATE 100 MG CAP PO SCH ×2 (08:00→21:13)
[2021-10-25] MEDS: DORZOLAMIDE/TIMOLOL 22.3/6.8MG/ML 10 ML BTL OPB SCH ×2 (08:01→21:12)
[2021-10-25] MEDS: BRIMONIDINE TARTRATE 0.2% 5ML OPB SCH ×2 (08:01→21:16)
[2021-10-25] MEDS: hydrALAZINE TAB 50 MG TAB PO SCH ×2 (08:01→21:14)
[2021-10-25 08:19] LABS: BUN Creatinine Ratio 39.5 (10-20); Calcium 8.7 mg/dl (8.5-10.1); Creatinine Clr Calc Pharmacy 46.6 ml/min; Est GFR (African American) 91.4 ml/min; Est GFR (Non-African American) 78.9 ml/min; Potassium 3.4 mmol/L (3.5-5.1)
[2021-10-25] MEDS: INSULIN ASPART 100 UNITS/ML VIAL SC SCH ×4 (08:52→21:11)
[2021-10-25] MEDS ORDERED: POTASSIUM CHLORIDE CRTAB 20 MEQ TABCR PO STA (09:54)
[2021-10-25] MEDS ORDERED: hydrALAZINE HCL 20 MG/ML VIAL IV STA (11:17)
[2021-10-25] MEDS: dexAMETHasone 6 MG in SYRINGE 0 ML IV SCH (15:28)
[2021-10-25] MEDS ORDERED: hydrALAZINE HCL 20 MG/ML VIAL IV PRN (17:11)
--- NOTE | 2021-10-25 17:16 | Hospitalist Progress Note ---
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 Outpatient COVID-19 test from 3 days ago [employer]ER[employer] PROF[employer] was positive [10/19]. At presentation she was saturating in the 80s on room air. She is being managed for the following: #. Acute hypoxic respiratory failure #. Covid pneumonia Vaccine status/month: Not vaccinated; S/S : 5 days [employer]ER[employer]; Tested Positive: 10/19 outpatient and 10/22 in ED Admitting pro-Ketan: Negative Admitting imaging: CXRRadiodensities in the right greater than left lung base, favored to represent atelectasis. Clinically patient on room air at bedside, no complaint of shortness of breath or chest pain, occasional crackles appreciated. Coughing at bedside Encourage every hour incentive spirometer/flutter valve/self proning as able Mucinex for cough, supplemental O2 BNP: Negative for age, 784; Strict I's and O's; as needed IV Lasix; monitor BMP Remdesivir held after 3 doses on 10/25 due to patient being on room air for a day. Sliding scale and glycemic pharmacy if needed when on steroid. Continue with 10/22 Decadron and status post remdesivir 10/22-10/24 #. Concern for atypical pneumonia Presenting signs and symptoms cough with yellow sputum Continue with doxycycline 10/23 #. Chronic medical condition: HTN, HLD, RA, DM2 [last A1c 6.21 November 2017], dementia, past tobacco abuse Resume home meds as appropriate. Delirium precautions On insulin sliding scale Patient's daughters: Ms. Brunilda Cali, contact #[phone]. Ms. Mirian Lay, contact #[phone]. DVT prophylaxis per Lovenox subcu Full code as per patient's family. Disposition: PT/OT recommending placement. CM to assist with DC planning. Patient medically stable for discharge as of now unless no new issues arises overnight. Admission and Anticipated Discharge Date Admission Date: October 22, 2021 Subjective Patient was lying in bed, on room air, NAD, no new acute events overnight per RN. Patient AOx3,. Patient had occasional wet cough at bedside exam. Patient denies any fever/headache/chills/chest pain/palpitation/shortness of breath/other review of symptoms. Physical Exam Physical Exam: GENERAL: Alert and oriented x3. NAD, on RA. HEENT: No pallor, no icterus. Pupils equal, round and reactive to light. Oral mucosa moist. NECK: No JVD, no neck masses. HEART: S1 and S2 heard. Regular rate and rhythm. No murmur, no gallop. RESPIRATORY SYSTEM: Normal AP diameter. No accessory muscle use. No wheezing, no crackles. Occasional crackles bilaterally. ABDOMEN: Soft, bowel sounds present, nontender, no distention. CENTRAL NERVOUS SYSTEM: No facial droop. Speech is clear. Obeys simple commands. Moves extremities. EXTREMITIES: No edema, no erythema seen. Results & Data Results & Data ([facility]) Vital Signs (Past 12 Hours) Vital Signs Temp Pulse Pulse Resp BP Pulse Ox 10/25/21 15:00 37.1 C 82 20 173/82 H 94 10/25/21 11:15 36.7 C 74 20 181/70 H 94 10/25/21 09:21 72 10/25/21 08:27 37.0 C 82 20 167/106 H 95
[2021-10-25] MEDS: INSULIN GLARGINE SOLOSTAR 100 UNITS/ML 3 ML PEN SC SCH (21:10)
[2021-10-25] MEDS: LATANOPROST 0.005% OP SOLN 2.5 ML BTL OPB SCH (21:12)
[2021-10-25] MEDS: traZODone HCL 100 MG TAB PO SCH (21:14)
[2021-10-25] MEDS: dilTIAZem HCL 300 MG CAPCR PO SCH (21:15)
[2021-10-25] MEDS: guaiFENesin 600 MG TABCR PO SCH (21:40)
[2021-10-26] MEDS: SODIUM CHLORIDE 0.9% 10ML FLUSH IV SCH ×2 (03:24→20:32)
[2021-10-26] MEDS: LEVOTHYROXINE SODIUM 50 MCG TABLET PO SCH (05:43)
[2021-10-26 07:16] LABS: Hematocrit (blood only) 44.9 % (37-47); Hemoglobin 15.7 g/dL (12.0-16.0); Mean Corpuscular Hemoglobin 31.7 pg (25-34); Mean Corpuscular Volume 90.7 fL (80-100); Mean Platelet Volume 10.5 fL (7.4-10.4); Platelet Count 152 K/uL (130-400); RDW Coefficient of Variation 13.7 % (11.5-14.5); RDW Standard Deviation 45.4 fL (36.4-46.3); Red Blood Count 4.95 M/uL (4.2-5.4); White Blood Count 5.41 K/uL (4.8-10.8)
[2021-10-26 07:44] LABS: BUN Creatinine Ratio 37.3 (10-20); Calcium 8.8 mg/dl (8.5-10.1); Creatinine Clr Calc Pharmacy 49.6 ml/min; Est GFR (African American) 93.3 ml/min; Est GFR (Non-African American) 80.5 ml/min; Magnesium 1.8 mg/dl (1.8-2.4); Potassium 3.5 mmol/L (3.5-5.1)
[2021-10-26] MEDS: hydrALAZINE TAB 50 MG TAB PO SCH ×2 (08:56→20:30)
[2021-10-26] MEDS: LOSARTAN POTASSIUM 50 MG TAB PO SCH (08:56)
[2021-10-26] MEDS: guaiFENesin 600 MG TABCR PO SCH ×2 (08:57→20:33)
[2021-10-26] MEDS: SERTRALINE HCL 50 MG TABLET PO SCH (08:57)
[2021-10-26] MEDS: OLMESARTAN MEDOXOMIL 40 MG TAB PO SCH (08:57)
[2021-10-26] MEDS: ENOXAPARIN INJ 30 MG/0.3 ML SYR SQ SCH (08:58)
[2021-10-26] MEDS: DORZOLAMIDE/TIMOLOL 22.3/6.8MG/ML 10 ML BTL OPB SCH ×2 (08:58→20:36)
[2021-10-26] MEDS: BRIMONIDINE TARTRATE 0.2% 5ML OPB SCH ×2 (08:58→20:36)
[2021-10-26] MEDS: INSULIN ASPART 100 UNITS/ML VIAL SC SCH ×4 (08:59→20:34)
[2021-10-26] MEDS: DOXYCYCLINE HYCLATE 100 MG CAP PO SCH ×2 (10:04→20:33)
[2021-10-26] MEDS ORDERED: POTASSIUM CHLORIDE CRTAB 20 MEQ TABCR PO STA (13:30)
[2021-10-26] MEDS: dexAMETHasone 6 MG in SYRINGE 0 ML IV SCH (16:36)
--- NOTE | 2021-10-26 18:18 | Hospitalist Progress Note ---
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 Outpatient COVID-19 test from 3 days ago [employer]ISTANT was positive [10/19]. At presentation she was saturating in the 80s on room air. She is being managed for the following: #. Acute hypoxic respiratory failure #. Covid pneumonia Vaccine status/month: Not vaccinated; S/S : 5 days [employer] ED[employer]ISTANT; Tested Positive: 10/19 outpatient and 10/22 in ED Admitting pro-Ketan: Negative Admitting imaging: CXRRadiodensities in the right greater than left lung base, favored to represent atelectasis. Clinically patient on room air at bedside, no complaint of shortness of breath or chest pain, occasional crackles appreciated. Coughing at bedside Encourage every hour incentive spirometer/flutter valve/self proning as able Mucinex for cough, supplemental O2 BNP: Negative for age, 784; Strict I's and O's; as needed IV Lasix; monitor BMP Remdesivir held after 3 doses on 10/25 due to patient being on room air for a day. Sliding scale and glycemic pharmacy if needed when on steroid. Continue with 10/22 Decadron and status post remdesivir 10/22-10/24 Clinically much better remains stable and only symptoms being cough Saturating normally on room air We will get PT OT-recommended rehab 2 step O2 saturation before discharge #. Concern for atypical pneumonia Presenting signs and symptoms cough with yellow sputum Continue with doxycycline 10/23 #. Chronic medical condition: HTN, HLD, RA, DM2 [last A1c 6.21 November 2017], dementia, past tobacco abuse Resume home meds as appropriate. Delirium precautions On insulin sliding scale Patient's daughters: Ms. Brunilda Cali, contact #[phone]. Ms. Mirian Lay, contact #[phone]. DVT prophylaxis per Lovenox subcu Full code as per patient's family. Admission and Anticipated Discharge Date Admission Date: October 22, 2021 Subjective 10/26/2021 The patient was seen and examined in Covid unit She has cough at rest and gets short of breath with minimal exertion but does not require any oxygen at rest Remains generally weak and lethargic Review of Systems Review of Systems: All systems reviewed and are unremarkable except as noted below Respiratory: Has cough without any shortness of breath at rest Physical Exam Physical Exam: Lying in bed comfortably Constitutional: well developed, well nourished, + ill appearing and average body habitus Eyes: PERRL, conjunctivae normal, anicteric sclerae ENMT: external ear and nose normal, oropharynx normal Respiratory: no respiratory distress Auscultation: + diminished lung sounds and + crackles (Minimal crackles at the bases) Cardiovascular: Rate/Rhythm: regular rate and regular rhythm; not tachycardic Heart Sounds: normal S1 and normal S2; no murmur Extremities: no edema Gastrointestinal (Abdomen): Inspection/Auscultation: normal bowel sounds; abdomen not distended Percussion/Palpation: abdomen soft; abdomen nontender Musculoskeletal: No acute arthritis in any joint Neurologic: Alert, awake and oriented x3 Results & Data Results & Data ([facility]) Vital Signs (Past 12 Hours) Vital Signs Temp Pulse Pulse Resp BP Pulse Ox 10/26/21 15:51 80 10/26/21 15:19 36.9 C 77 19 169/99 H 95 10/26/21 13:34 91 10/26/21 11:40 36.8 C 85 19 137/81 98 10/26/21 09:00 71 10/26/21 08:00 36.9 C 89 18 171/90 H 94 10/26/21 06:24 77 Laboratory Results Short CBC 10/26/21 Range/Units 05:53 WBC 5.41 (4.8-10.8) K/uL Hgb 15.7 (12.0-16.0) g/dL Hct 44.9 (37-47) % Plt Count 152 (130-400) K/uL BMP 10/26/21 05:53 Sodium 142 Potassium 3.5 Chloride 108 H Carbon Dioxide 26 BUN 23 H Creatinine 0.62 Glucose 225 H Calcium 8.8 Medications Administered Current Inpatient Medications Acetaminophen (Acetaminophen 325 Mg Tab) 650 mg PO Q4H PRN PRN Reason: Pain or Fever Stop: 11/21/21 23:24 Atorvastatin Calcium (Atorvastatin 10 Mg Tab) 10 mg PO [id number] [facility] Stop: 11/22/21 00:29 Last Admin: 10/24/21 20:57 Dose: 10 mg Documented by: Baclofen (Baclofen 10 Mg Tab) 10 mg PO TID PRN PRN Reason: Muscle Spasm Stop: 11/21/21 23:24 Brimonidine Tartrate (Brimonidine Tartrate 0.2% 5ml) 1 drops OPB BID [facility] Stop: 11/21/21 23:24 Last Admin: 10/26/21 08:58 Dose: 1 drops Documented by: Dextrose (Dextrose 50% 50 Ml Syringe) 25 - 50 ml IV UD PRN; Protocol PRN Reason: Hypoglycemia Protocol Stop: 11/21/21 21:59 Diltiazem HCl (Diltiazem Hcl 300 Mg Capcr) 300 mg PO HS [facility] Stop: 11/21/21 21:44 Last Admin: 10/25/21 21:15 Dose: 300 mg Documented by: Dorzolamide/Timolol (Dorzolamide/Timolol 22.3/6.8mg/Ml 10 Ml Btl) 1 drops OPB BID [facility] Stop: 11/21/21 23:24 Last Admin: 10/26/21 08:58 Dose: 1 drops Documented by: Doxycycline Hyclate (Doxycycline Hyclate 100 Mg Cap) 100 mg PO BID [facility] Stop: 10/30/21 08:59 Last Admin: 10/26/21 10:04 Dose: 100 mg Documented by: Enoxaparin Sodium (Enoxaparin Inj 30 Mg/0.3 Ml Syr) 30 mg SQ QAM TEJINDER Stop: 11/22/21 08:59 Last Admin: 10/26/21 08:58 Dose: 30 mg Documented by: Glucagon (Glucagon For Inj 1 Mg Vial) 1 mg IM UD PRN; Protocol PRN Reason: Hypoglycemia Protocol Stop: 11/21/21 21:59 Glucose (Glucose 40% Gel 15 Gm Tube) 15 - 30 gm PO UD PRN; Protocol PRN Reason: Hypoglycemia Protocol Stop: 11/21/21 21:59 Glucose (Glucose 10 Tabs/Tube) 4 - 8 tabs PO UD PRN; Protocol PRN Reason: Hypoglycemia Protocol Stop: 11/21/21 21:59 Guaifenesin (Guaifenesin 600 Mg Tabcr) 600 mg PO Q12 TEJINDER Stop: 11/24/21 20:59 Last Admin: 10/26/21 08:57 Dose: 600 mg Documented by: Hydralazine HCl (Hydralazine Tab 50 Mg Tab) 50 mg PO BID [facility] Stop: 11/21/21 21:44 Last Admin: 10/26/21 08:56 Dose: 50 mg Documented by: Hydralazine HCl (Hydralazine Hcl 20 Mg/Ml Vial) 10 mg IV Q6H PRN PRN Reason: hypertension Stop: 11/24/21 17:14 Promethazine HCl 6.25 mg/ (Sodium Chloride) 50.25 mls @ 201 mls/hr IV Q6H PRN PRN Reason: Nausea And Vomiting Stop: 11/21/21 23:24 Remdesivir 100 mg/ Sodium (Chloride) 250 mls @ 250 mls/hr IV Q24H [facility]; Protocol Last Infusion: 10/24/21 22:08 Dose: Infused Documented by: Dexamethasone 6 mg/ Syringe 1.5 mls @ 1 mls/min IV Q24H [facility] Stop: 11/01/21 15:59 Last Admin: 10/26/21 16:36 Dose: 1 mls/min Documented by: Insulin Aspart (Insulin Aspart 100 Units/Ml Vial) 0 units SC ACHS [facility] Stop: 11/21/21 23:24 Last Admin: 10/26/21 17:18 Dose: Not Given Documented by: Insulin Glargine (Insulin Glargine Solostar 100 Units/Ml 3 Ml Pen) 5 units SC [facility] Stop: 11/21/21 20:59 Last Admin: 10/25/21 21:10 Dose: 5 units Documented by: Ipratropium [place] (Ipratropium [place] Neb Soln 0.02% 2.5 Ml Vial) 0.5 mg INH Q4H PRN PRN Reason: SOB/WHEEZE Stop: 11/21/21 23:24 Latanoprost (Latanoprost 0.005% Op Soln 2.5 Ml Btl) 1 drops OPB HS [facility] Stop: 11/21/21 23:24 Last Admin: 10/25/21 21:12 Dose: 1 drops Documented by: Levalbuterol HCl (Levalbuterol 1.25mg/0.5ml Neb) 1.25 mg INH Q4H PRN PRN Reason: SOB/WHEEZE Stop: 11/21/21 23:24 Levothyroxine Sodium (Levothyroxine Sodium 50 Mcg Tablet) 50 mcg PO [id number] [facility] Stop: 11/22/21 06:29 Last Admin: 10/26/21 05:43 Dose: 50 mcg Documented by: Levothyroxine Sodium (Levothyroxine Sodium 100 Mcg Tablet) 100 mcg PO [id number] [facility] Stop: 11/27/21 06:29 Losartan Potassium (Losartan Potassium 50 Mg Tab) 100 mg PO QAM [facility] Stop: 11/23/21 08:59 Last Admin: 10/26/21 08:56 Dose: 100 mg Documented by: Melatonin (Melatonin 3 Mg Tab) 3 mg PO HS PRN PRN Reason: Sleep Stop: 11/21/21 23:24 Miscellaneous (Carbohydrates For Hypoglycemia ) 15 - 30 gm PO UD PRN PRN Reason: Hypoglycemia Treatment Stop: 11/21/21 21:59 Olmesartan (Olmesartan Medoxomil 40 Mg Tab) 40 mg PO DAILY [facility] Stop: 11/22/21 08:59 Last Admin: 10/26/21 08:57 Dose: 40 mg Documented by: Sertraline HCl (Sertraline Hcl 50 Mg Tablet) 50 mg PO QAM [facility] Stop: 11/22/21 08:59 Last Admin: 10/26/21 08:57 Dose: 50 mg Documented by: Sodium Chloride (Sodium Chloride 0.9% 10ml Flush) 30 ml IV Q24H [facility] Stop: 10/26/21 23:26 Last Admin: 10/26/21 03:24 Dose: Not Given Documented by: Tramadol HCl (Tramadol Hcl 50 Mg Tablet) 25 mg PO Q4H PRN PRN Reason: Pain Stop: 11/21/21 21:42 Trazodone HCl (Trazodone Hcl 100 Mg Tab) 100 mg PO QPM [facility] Stop: 11/22/21 20:59 Last Admin: 10/25/21 21:14 Dose: 100 mg Documented by:
[2021-10-26] MEDS: ATORVASTATIN 10 MG TAB PO SCH (20:31)
[2021-10-26] MEDS: dilTIAZem HCL 300 MG CAPCR PO SCH (20:31)
[2021-10-26] MEDS: traZODone HCL 100 MG TAB PO SCH (20:32)
[2021-10-26] MEDS: INSULIN GLARGINE SOLOSTAR 100 UNITS/ML 3 ML PEN SC SCH (20:35)
[2021-10-26] MEDS: LATANOPROST 0.005% OP SOLN 2.5 ML BTL OPB SCH (20:36)
[2021-10-27] MEDS: LEVOTHYROXINE SODIUM 50 MCG TABLET PO SCH (05:48)
[2021-10-27] MEDS: OLMESARTAN MEDOXOMIL 40 MG TAB PO SCH (08:05)
[2021-10-27] MEDS: DORZOLAMIDE/TIMOLOL 22.3/6.8MG/ML 10 ML BTL OPB SCH ×2 (08:05→20:49)
[2021-10-27] MEDS: SERTRALINE HCL 50 MG TABLET PO SCH (08:05)
[2021-10-27] MEDS: DOXYCYCLINE HYCLATE 100 MG CAP PO SCH ×2 (08:05→20:52)
[2021-10-27] MEDS: hydrALAZINE TAB 50 MG TAB PO SCH ×2 (08:06→20:53)
[2021-10-27] MEDS: guaiFENesin 600 MG TABCR PO SCH ×2 (08:06→20:51)
[2021-10-27] MEDS: LOSARTAN POTASSIUM 50 MG TAB PO SCH (08:06)
[2021-10-27] MEDS: ENOXAPARIN INJ 30 MG/0.3 ML SYR SQ SCH (08:06)
[2021-10-27] MEDS: BRIMONIDINE TARTRATE 0.2% 5ML OPB SCH ×2 (08:07→20:50)
[2021-10-27] MEDS: INSULIN ASPART 100 UNITS/ML VIAL SC SCH ×4 (08:19→20:47)
[2021-10-27] MEDS ORDERED: FUROSEMIDE 40 MG/4 ML VIAL IV ONE (16:04)
--- NOTE | 2021-10-27 16:09 | Hospitalist Progress Note ---
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 At presentation she was saturating in the 80s on room air. She is being managed for the following: #. Acute hypoxic respiratory failure #. 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 Clinically patient on room air at bedside, no complaint of shortness of breath or chest pain, occasional crackles appreciated. Coughing at bedside Encourage every hour incentive spirometer/flutter valve/self proning as able Mucinex for cough, supplemental O2 BNP: Negative for age, 784; Strict I's and O's; as needed IV Lasix; monitor BMP Remdesivir held after 3 doses on 10/25 due to patient being on room air for a day. Sliding scale and glycemic pharmacy if needed when on steroid. Continue with 10/22 Decadron and status post remdesivir 10/22-10/24 Clinically much better remains stable and only symptoms being cough Saturating normally on room air We will get PT OT-recommended rehab Will give 40 mg of Lasix intravenously x1 today Awaiting placement #. Concern for atypical pneumonia Presenting signs and symptoms cough with yellow sputum Continue with doxycycline 10/23 #. Chronic medical condition: HTN, HLD, RA, DM2 [last A1c 6.21 November 2017], dementia, past tobacco abuse Resume home meds as appropriate. Delirium precautions On insulin sliding scale Patient's daughters: Ms. Brunilda Cali, contact #[phone]. Ms. Mirian Lay, contact #[phone]. DVT prophylaxis per Lovenox subcu Full code as per patient's family. Admission and Anticipated Discharge Date Admission Date: October 22, 2021 Subjective 10/26/2021 The patient was seen and examined in Covid unit She has cough at rest and gets short of breath with minimal exertion but does not require any oxygen at rest Remains generally weak and lethargic 10/27/2021 The patient was seen and examined in Covid unit She has been weak and lethargic and also has minimal cough but no shortness of breath She has been saturating normally on room air Review of Systems Review of Systems: All systems reviewed and are unremarkable except as noted below Respiratory: Has cough without any shortness of breath at rest Physical Exam Physical Exam: Lying in bed comfortably Constitutional: well developed, well nourished, + ill appearing and average body habitus Eyes: PERRL, conjunctivae normal, anicteric sclerae ENMT: external ear and nose normal, oropharynx normal Respiratory: no respiratory distress Auscultation: + diminished lung sounds and + crackles (Minimal crackles at the bases) Cardiovascular: Rate/Rhythm: regular rate and regular rhythm; not tachycardic Heart Sounds: normal S1 and normal S2; no murmur Extremities: no edema Gastrointestinal (Abdomen): Inspection/Auscultation: normal bowel sounds; abdomen not distended Percussion/Palpation: abdomen soft; abdomen nontender Musculoskeletal: No acute arthritis in any joint Neurologic: Alert and awake. Pleasantly confused. Generally weak Lymphatic: no cervical or axillary lymphadenopathy Results & Data Results & Data ([facility]) Vital Signs (Past 12 Hours) Vital Signs Temp Pulse Pulse Resp BP Pulse Ox 10/27/21 11:42 37.1 C 71 18 165/79 H 92 10/27/21 06:53 36.3 C L 78 16 173/75 H 95 10/27/21 05:54 77 Medications Administered Current Inpatient Medications Acetaminophen (Acetaminophen 325 Mg Tab) 650 mg PO Q4H PRN PRN Reason: Pain or Fever Stop: 11/21/21 23:24 Atorvastatin Calcium (Atorvastatin 10 Mg Tab) 10 mg PO MoWeFr@2100 [facility] Stop: 11/22/21 00:29 Last Admin: 10/26/21 20:31 Dose: 10 mg Documented by: Baclofen (Baclofen 10 Mg Tab) 10 mg PO TID PRN PRN Reason: Muscle Spasm Stop: 11/21/21 23:24 Benzonatate (Benzonatate 100 Mg Capsule) 100 mg PO TID [facility] Stop: 11/26/21 13:59 Brimonidine Tartrate (Brimonidine Tartrate 0.2% 5ml) 1 drops OPB BID [facility] Stop: 11/21/21 23:24 Last Admin: 10/27/21 08:07 Dose: 1 drops Documented by: Dextrose (Dextrose 50% 50 Ml Syringe) 25 - 50 ml IV UD PRN; Protocol PRN Reason: Hypoglycemia Protocol Stop: 11/21/21 21:59 Diltiazem HCl (Diltiazem Hcl 300 Mg Capcr) 300 mg PO HS [facility] Stop: 11/21/21 21:44 Last Admin: 10/26/21 20:31 Dose: 300 mg Documented by: Dorzolamide/Timolol (Dorzolamide/Timolol 22.3/6.8mg/Ml 10 Ml Btl) 1 drops OPB BID [facility] Stop: 11/21/21 23:24 Last Admin: 10/27/21 08:05 Dose: 1 drops Documented by: Doxycycline Hyclate (Doxycycline Hyclate 100 Mg Cap) 100 mg PO BID [facility] Stop: 10/30/21 08:59 Last Admin: 10/27/21 08:05 Dose: 100 mg Documented by: Enoxaparin Sodium (Enoxaparin Inj 30 Mg/0.3 Ml Syr) 30 mg SQ QAM [facility] Stop: 11/22/21 08:59 Last Admin: 10/27/21 08:06 Dose: 30 mg Documented by: Glucagon (Glucagon For Inj 1 Mg Vial) 1 mg IM UD PRN; Protocol PRN Reason: Hypoglycemia Protocol Stop: 11/21/21 21:59 Glucose (Glucose 40% Gel 15 Gm Tube) 15 - 30 gm PO UD PRN; Protocol PRN Reason: Hypoglycemia Protocol Stop: 11/21/21 21:59 Glucose (Glucose 10 Tabs/Tube) 4 - 8 tabs PO UD PRN; Protocol PRN Reason: Hypoglycemia Protocol Stop: 11/21/21 21:59 Guaifenesin (Guaifenesin 600 Mg Tabcr) 600 mg PO Q12 [facility] Stop: 11/24/21 20:59 Last Admin: 10/27/21 08:06 Dose: 600 mg Documented by: Hydralazine HCl (Hydralazine Tab 50 Mg Tab) 50 mg PO BID [facility] Stop: 11/21/21 21:44 Last Admin: 12/11/21 08:06 Dose: 50 mg Documented by: Hydralazine HCl (Hydralazine Hcl 20 Mg/Ml Vial) 10 mg IV Q6H PRN PRN Reason: hypertension Stop: 11/24/21 17:14 Promethazine HCl 6.25 mg/ (Sodium Chloride) 50.25 mls @ 201 mls/hr IV Q6H PRN PRN Reason: Nausea And Vomiting Stop: 11/21/21 23:24 Remdesivir 100 mg/ Sodium (Chloride) 250 mls @ 250 mls/hr IV Q24H [facility]; Protocol Last Infusion: 10/24/21 22:08 Dose: Infused Documented by: Dexamethasone 6 mg/ Syringe 1.5 mls @ 1 mls/min IV Q24H [facility] Stop: 11/01/21 15:59 Last Admin: 10/26/21 16:36 Dose: 1 mls/min Documented by: Insulin Aspart (Insulin Aspart 100 Units/Ml Vial) 0 units SC [facility] Stop: 11/21/21 23:24 Last Admin: 10/27/21 12:28 Dose: 6 units Documented by: Insulin Glargine (Insulin Glargine Solostar 100 Units/Ml 3 Ml Pen) 5 units SC [facility] Stop: 11/21/21 20:59 Last Admin: 10/26/21 20:35 Dose: 5 units Documented by: Ipratropium [place] (Ipratropium [place] Neb Soln 0.02% 2.5 Ml Vial) 0.5 mg INH Q4H PRN PRN Reason: SOB/WHEEZE Stop: 11/21/21 23:24 Latanoprost (Latanoprost 0.005% Op Soln 2.5 Ml Btl) 1 drops OPB HS [facility] Stop: 11/21/21 23:24 Last Admin: 10/26/21 20:36 Dose: 1 drops Documented by: Levalbuterol HCl (Levalbuterol 1.25mg/0.5ml Neb) 1.25 mg INH Q4H PRN PRN Reason: SOB/WHEEZE Stop: 11/21/21 23:24 Levothyroxine Sodium (Levothyroxine Sodium 50 Mcg Tablet) 50 mcg PO MoTuWeThFrSa@0630 [facility] Stop: 11/22/21 06:29 Last Admin: 10/27/21 05:48 Dose: 50 mcg Documented by: Levothyroxine Sodium (Levothyroxine Sodium 100 Mcg Tablet) 100 mcg PO Steele@0630 [facility] Stop: 11/27/21 06:29 Losartan Potassium (Losartan Potassium 50 Mg Tab) 100 mg PO QAM [facility] Stop: 11/23/21 08:59 Last Admin: 10/27/21 08:06 Dose: 100 mg Documented by: Melatonin (Melatonin 3 Mg Tab) 3 mg PO HS PRN PRN Reason: Sleep Stop: 11/21/21 23:24 Miscellaneous (Carbohydrates For Hypoglycemia ) 15 - 30 gm PO UD PRN PRN Reason: Hypoglycemia Treatment Stop: 11/21/21 21:59 Olmesartan (Olmesartan Medoxomil 40 Mg Tab) 40 mg PO DAILY [facility] Stop: 11/22/21 08:59 Last Admin: 10/27/21 08:05 Dose: 40 mg Documented by: Sertraline HCl (Sertraline Hcl 50 Mg Tablet) 50 mg PO QAM [facility] Stop: 11/22/21 08:59 Last Admin: 10/27/21 08:05 Dose: 50 mg Documented by: Tramadol HCl (Tramadol Hcl 50 Mg Tablet) 25 mg PO Q4H PRN PRN Reason: Pain Stop: 11/21/21 21:42 Trazodone HCl (Trazodone Hcl 100 Mg Tab) 100 mg PO QPM [facility] Stop: 11/22/21 20:59 Last Admin: 10/26/21 20:32 Dose: 100 mg Documented by:
[2021-10-27] MEDS: dexAMETHasone 6 MG in SYRINGE 0 ML IV SCH (16:55)
[2021-10-27] MEDS: BENZONATATE 100 MG CAPSULE PO SCH ×2 (16:58→20:56)
[2021-10-27] MEDS: INSULIN GLARGINE SOLOSTAR 100 UNITS/ML 3 ML PEN SC SCH (20:49)
[2021-10-27] MEDS: LATANOPROST 0.005% OP SOLN 2.5 ML BTL OPB SCH (20:50)
[2021-10-27] MEDS: dilTIAZem HCL 300 MG CAPCR PO SCH (20:51)
[2021-10-27] MEDS: traZODone HCL 100 MG TAB PO SCH (20:53)
[2021-10-28] MEDS ORDERED: LEVOTHYROXINE SODIUM 100 MCG TABLET PO SCH (06:30)
[2021-10-28] MEDS: DOXYCYCLINE HYCLATE 100 MG CAP PO SCH ×2 (07:10→21:07)
[2021-10-28] MEDS: hydrALAZINE TAB 50 MG TAB PO SCH ×2 (07:10→21:00)
[2021-10-28] MEDS: SERTRALINE HCL 50 MG TABLET PO SCH (07:11)
[2021-10-28] MEDS: LOSARTAN POTASSIUM 50 MG TAB PO SCH (07:11)
[2021-10-28] MEDS: OLMESARTAN MEDOXOMIL 40 MG TAB PO SCH (07:11)
[2021-10-28] MEDS: DORZOLAMIDE/TIMOLOL 22.3/6.8MG/ML 10 ML BTL OPB SCH ×2 (07:12→20:58)
[2021-10-28] MEDS: BRIMONIDINE TARTRATE 0.2% 5ML OPB SCH ×2 (07:13→20:58)
[2021-10-28] MEDS: ENOXAPARIN INJ 30 MG/0.3 ML SYR SQ SCH (07:14)
[2021-10-28] MEDS: BENZONATATE 100 MG CAPSULE PO SCH ×3 (07:14→21:00)
[2021-10-28] MEDS: guaiFENesin 600 MG TABCR PO SCH ×2 (07:15→20:59)
[2021-10-28 07:45] LABS: Basophils # (auto) 0.01 K/uL (0-0.2); Basophils % (auto) 0.1 %; Hematocrit (blood only) 44.9 % (37-47); Hemoglobin 15.7 g/dL (12.0-16.0); Immature Granulocytes # (auto) 0.04 K/uL (0.00-0.02); Immature Granulocytes % (auto) 0.3 %; Lymphocytes % (auto) 4.6 %; Mean Corpuscular Hemoglobin 31.1 pg (25-34); Mean Corpuscular Volume 88.9 fL (80-100); Mean Platelet Volume 10.7 fL (7.4-10.4); Monocytes # (auto) 0.94 K/uL (0.11-0.59); Monocytes % (auto) 7.3 %; Neutrophils # (auto) 11.35 K/uL (1.4-6.5); Neutrophils % (auto) 87.7 %; Platelet Count 160 K/uL (130-400); RDW Coefficient of Variation 13.3 % (11.5-14.5); RDW Standard Deviation 43.4 fL (36.4-46.3); Red Blood Count 5.05 M/uL (4.2-5.4); White Blood Count 12.94 K/uL (4.8-10.8)
[2021-10-28 08:13] LABS: BUN Creatinine Ratio 40.2 (10-20); Calcium 8.8 mg/dl (8.5-10.1); Creatinine Clr Calc Pharmacy 39.4 ml/min; Est GFR (African American) 78.7 ml/min; Est GFR (Non-African American) 67.9 ml/min; Potassium 3.7 mmol/L (3.5-5.1)
[2021-10-28] MEDS: INSULIN ASPART 100 UNITS/ML VIAL SC SCH ×4 (08:35→21:05)
--- NOTE | 2021-10-28 13:19 | Hospitalist Progress Note ---
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 At presentation she was saturating in the 80s on room air. She is being managed for the following: #. Acute hypoxic respiratory failure #. 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 Clinically patient on room air at bedside, no complaint of shortness of breath or chest pain, occasional crackles appreciated. Coughing at bedside Encourage every hour incentive spirometer/flutter valve/self proning as able Mucinex for cough, supplemental O2 BNP: Negative for age, 784; Strict I's and O's; as needed IV Lasix; monitor BMP Remdesivir held after 3 doses on 10/25 due to patient being on room air for a day. Sliding scale and glycemic pharmacy if needed when on steroid. Continue with 10/22 Decadron and status post remdesivir 10/22-10/24 Clinically much better remains stable and only symptoms being cough Saturating normally on room air We will get PT OT-recommended rehab Will give 40 mg of Lasix intravenously x1 today Remains stable with minimal cough but without any other significant symptoms Awaiting placement #. Concern for atypical pneumonia Presenting signs and symptoms cough with yellow sputum Continue with doxycycline 10/23 #. Chronic medical condition: HTN, HLD, RA, DM2 [last A1c 6.21 November 2017], dementia, past tobacco abuse Resume home meds as appropriate. Delirium precautions On insulin sliding scale Patient's daughters: Ms. rBunilda Cali, contact #[phone]. Ms. Mirian Lay, contact #[phone]. DVT prophylaxis per Lovenox subcu Full code as per patient's family. Admission and Anticipated Discharge Date Admission Date: October 22, 2021 Subjective 10/26/2021 The patient was seen and examined in Covid unit She has cough at rest and gets short of breath with minimal exertion but does not require any oxygen at rest Remains generally weak and lethargic 10/27/2021 The patient was seen and examined in Covid unit She has been weak and lethargic and also has minimal cough but no shortness of breath She has been saturating normally on room air 10/28/21 The patient was seen and examined in Covid unit She has been feeling much better and denies any significant symptoms except minimal cough Has had PT and OT and recommended rehab Review of Systems Review of Systems: All systems reviewed and are unremarkable except as noted below Respiratory: Has cough without any shortness of breath at rest Physical Exam Physical Exam: Lying in bed comfortably Constitutional: well developed, well nourished, + ill appearing and average body habitus Eyes: PERRL, conjunctivae normal, anicteric sclerae ENMT: external ear and nose normal, oropharynx normal Respiratory: no respiratory distress Auscultation: + diminished lung sounds and + crackles (Minimal crackles at the bases) Cardiovascular: Rate/Rhythm: regular rate and regular rhythm; not tachycardic Heart Sounds: normal S1 and normal S2; no murmur Extremities: no edema Gastrointestinal (Abdomen): Inspection/Auscultation: normal bowel sounds; abdomen not distended Percussion/Palpation: abdomen soft; abdomen nontender Musculoskeletal: No acute arthritis in any joint Neurologic: Alert, awake and oriented. Generalized weakness Lymphatic: no cervical or axillary lymphadenopathy Results & Data Results & Data ([facility]) Vital Signs (Past 12 Hours) Vital Signs Temp Pulse Pulse Resp BP Pulse Ox 10/28/21 11:49 36.4 C L 89 16 118/78 93 10/28/21 10:47 71 10/28/21 07:19 36.3 C L 84 16 138/68 92 10/28/21 04:16 83 10/28/21 03:27 36.8 C 78 16 144/70 H 92 Laboratory Results Short CBC 10/28/21 Range/Units 07:01 WBC 12.94 H (4.8-10.8) K/uL Hgb 15.7 (12.0-16.0) g/dL Hct 44.9 (37-47) % Plt Count 160 (130-400) K/uL BMP 10/28/21 07:01 Sodium 136 Potassium 3.7 Chloride 100 Carbon Dioxide 25 BUN 31 H Creatinine 0.78 Glucose 265 H Calcium 8.8 Medications Administered Current Inpatient Medications Acetaminophen (Acetaminophen 325 Mg Tab) 650 mg PO Q4H PRN PRN Reason: Pain or Fever Stop: 11/21/21 23:24 Atorvastatin Calcium (Atorvastatin 10 Mg Tab) 10 mg PO MoWeFr@2100 [facility] Stop: 11/22/21 00:29 Last Admin: 10/26/21 20:31 Dose: 10 mg Documented by: Baclofen (Baclofen 10 Mg Tab) 10 mg PO TID PRN PRN Reason: Muscle Spasm Stop: 11/21/21 23:24 Benzonatate (Benzonatate 100 Mg Capsule) 100 mg PO TID [facility] Stop: 11/26/21 13:59 Last Admin: 10/28/21 07:14 Dose: 100 mg Documented by: Brimonidine Tartrate (Brimonidine Tartrate 0.2% 5ml) 1 drops OPB BID [facility] Stop: 11/21/21 23:24 Last Admin: 10/28/21 07:13 Dose: 1 drops Documented by: Dextrose (Dextrose 50% 50 Ml Syringe) 25 - 50 ml IV UD PRN; Protocol PRN Reason: Hypoglycemia Protocol Stop: 11/21/21 21:59 Diltiazem HCl (Diltiazem Hcl 300 Mg Capcr) 300 mg PO HS [facility] Stop: 11/21/21 21:44 Last Admin: 10/27/21 20:51 Dose: 300 mg Documented by: Dorzolamide/Timolol (Dorzolamide/Timolol 22.3/6.8mg/Ml 10 Ml Btl) 1 drops OPB BID [facility] Stop: 11/21/21 23:24 Last Admin: 10/28/21 07:12 Dose: 1 drops Documented by: Doxycycline Hyclate (Doxycycline Hyclate 100 Mg Cap) 100 mg PO BID [facility] Stop: 10/30/21 08:59 Last Admin: 10/28/21 07:10 Dose: 100 mg Documented by: Enoxaparin Sodium (Enoxaparin Inj 30 Mg/0.3 Ml Syr) 30 mg SQ QAM [facility] Stop: 11/22/21 08:59 Last Admin: 10/28/21 07:14 Dose: 30 mg Documented by: Glucagon (Glucagon For Inj 1 Mg Vial) 1 mg IM UD PRN; Protocol PRN Reason: Hypoglycemia Protocol Stop: 11/21/21 21:59 Glucose (Glucose 40% Gel 15 Gm Tube) 15 - 30 gm PO UD PRN; Protocol PRN Reason: Hypoglycemia Protocol Stop: 11/21/21 21:59 Glucose (Glucose 10 Tabs/Tube) 4 - 8 tabs PO UD PRN; Protocol PRN Reason: Hypoglycemia Protocol Stop: 11/21/21 21:59 Guaifenesin (Guaifenesin 600 Mg Tabcr) 600 mg PO Q12 [facility] Stop: 11/24/21 20:59 Last Admin: 10/28/21 07:15 Dose: 600 mg Documented by: Hydralazine HCl (Hydralazine Tab 50 Mg Tab) 50 mg PO BID [facility] Stop: 11/21/21 21:44 Last Admin: 10/28/21 07:10 Dose: 50 mg Documented by: Hydralazine HCl (Hydralazine Hcl 20 Mg/Ml Vial) 10 mg IV Q6H PRN PRN Reason: hypertension Stop: 11/24/21 17:14 Promethazine HCl 6.25 mg/ (Sodium Chloride) 50.25 mls @ 201 mls/hr IV Q6H PRN PRN Reason: Nausea And Vomiting Stop: 11/21/21 23:24 Remdesivir 100 mg/ Sodium (Chloride) 250 mls @ 250 mls/hr IV Q24H [facility]; Protocol Last Infusion: 10/24/21 22:08 Dose: Infused Documented by: Dexamethasone 6 mg/ Syringe 1.5 mls @ 1 mls/min IV Q24H [facility] Stop: 11/01/21 15:59 Last Admin: 10/27/21 16:55 Dose: 1 mls/min Documented by: Insulin Aspart (Insulin Aspart 100 Units/Ml Vial) [address] [facility] Stop: 11/21/21 23:24 Last Admin: 10/28/21 12:26 Dose: 1 units Documented by: Insulin Glargine (Insulin Glargine Solostar 100 Units/Ml 3 Ml Pen) 5 units SC [facility] Stop: 11/21/21 20:59 Last Admin: 10/27/21 20:49 Dose: 5 units Documented by: Ipratropium [place] (Ipratropium [place] Neb Soln 0.02% 2.5 Ml Vial) 0.5 mg INH Q4H PRN PRN Reason: SOB/WHEEZE Stop: 11/21/21 23:24 Latanoprost (Latanoprost 0.005% Op Soln 2.5 Ml Btl) 1 drops OPB HS [facility] Stop: 11/21/21 23:24 Last Admin: 10/27/21 20:50 Dose: 1 drops Documented by: Levalbuterol HCl (Levalbuterol 1.25mg/0.5ml Neb) 1.25 mg INH Q4H PRN PRN Reason: SOB/WHEEZE Stop: 11/21/21 23:24 Levothyroxine Sodium (Levothyroxine Sodium 50 Mcg Tablet) 50 mcg PO MoTuWeThFrSa@0630 [facility] Stop: 11/22/21 06:29 Last Admin: 10/27/21 05:48 Dose: 50 mcg Documented by: Levothyroxine Sodium (Levothyroxine Sodium 100 Mcg Tablet) 100 mcg PO Steele@30 [facility] Stop: 11/27/21 06:29 Last Admin: 10/28/21 05:50 Dose: 100 mcg Documented by: Losartan Potassium (Losartan Potassium 50 Mg Tab) 100 mg PO QAM [facility] Stop: 11/23/21 08:59 Last Admin: 10/28/21 07:11 Dose: 100 mg Documented by: Melatonin (Melatonin 3 Mg Tab) 3 mg PO HS PRN PRN Reason: Sleep Stop: 11/21/21 23:24 Miscellaneous (Carbohydrates For Hypoglycemia ) 15 - 30 gm PO UD PRN PRN Reason: Hypoglycemia Treatment Stop: 11/21/21 21:59 Olmesartan (Olmesartan Medoxomil 40 Mg Tab) 40 mg PO DAILY [facility] Stop: 11/22/21 08:59 Last Admin: 10/28/21 07:11 Dose: 40 mg Documented by: Sertraline HCl (Sertraline Hcl 50 Mg Tablet) 50 mg PO QAM [facility] Stop: 11/22/21 08:59 Last Admin: 10/28/21 07:11 Dose: 50 mg Documented by: Tramadol HCl (Tramadol Hcl 50 Mg Tablet) 25 mg PO Q4H PRN PRN Reason: Pain Stop: 11/21/21 21:42 Trazodone HCl (Trazodone Hcl 100 Mg Tab) 100 mg PO QPM [facility] Stop: 11/22/21 20:59 Last Admin: 10/27/21 20:53 Dose: 100 mg Documented by:
[2021-10-28] MEDS: dexAMETHasone 6 MG in SYRINGE 0 ML IV SCH (15:33)
[2021-10-28] MEDS: LATANOPROST 0.005% OP SOLN 2.5 ML BTL OPB SCH (20:58)
[2021-10-28] MEDS: traZODone HCL 100 MG TAB PO SCH (20:59)
[2021-10-28] MEDS: INSULIN GLARGINE SOLOSTAR 100 UNITS/ML 3 ML PEN SC SCH (21:05)
[2021-10-28] MEDS: dilTIAZem HCL 300 MG CAPCR PO SCH (21:06)
[2021-10-29] MEDS: LEVOTHYROXINE SODIUM 50 MCG TABLET PO SCH (05:45)
[2021-10-29] MEDS: OLMESARTAN MEDOXOMIL 40 MG TAB PO SCH (09:04)
[2021-10-29] MEDS: LOSARTAN POTASSIUM 50 MG TAB PO SCH (09:04)
[2021-10-29] MEDS: guaiFENesin 600 MG TABCR PO SCH ×2 (09:04→20:52)
[2021-10-29] MEDS: BENZONATATE 100 MG CAPSULE PO SCH ×3 (09:04→20:50)
[2021-10-29] MEDS: DOXYCYCLINE HYCLATE 100 MG CAP PO SCH ×2 (09:04→20:51)
[2021-10-29] MEDS: SERTRALINE HCL 50 MG TABLET PO SCH (09:05)
[2021-10-29] MEDS: ENOXAPARIN INJ 30 MG/0.3 ML SYR SQ SCH (09:05)
[2021-10-29] MEDS: hydrALAZINE TAB 50 MG TAB PO SCH ×2 (09:05→20:52)
[2021-10-29] MEDS: BRIMONIDINE TARTRATE 0.2% 5ML OPB SCH ×2 (09:06→20:50)
[2021-10-29] MEDS: DORZOLAMIDE/TIMOLOL 22.3/6.8MG/ML 10 ML BTL OPB SCH ×2 (09:06→20:51)
[2021-10-29] MEDS: INSULIN ASPART 100 UNITS/ML VIAL SC SCH ×4 (09:06→20:52)
--- NOTE | 2021-10-29 16:04 | Hospitalist Progress Note ---
Date of Service October 29, 2021 Assessment & Plan (1) Acute hypoxemic respiratory failure due to COVID-19: (2) Atypical pneumonia: Plan: 89-year-old lady with PMH of HTN, HLD, RA, GERD, DM2 on oral medication, dementia and past tobacco abuse presented to our ED 10/22 with complaint of junky cough symptoms with shortness of breath since 5 days [employer]. Positive sick COVID- 19 contacts. Outpatient COVID-19 test from 3 days ago [employer] was positive [10/19]. At presentation she was saturating in the 80s on room air. She is being managed for the following: #. Acute hypoxic respiratory failure #. Covid pneumonia Vaccine status/month: Not vaccinated; S/S : 5 days [employer]; Tested Positive: 10/19 outpatient and 10/22 in ED Admitting pro-Ketan: Negative Admitting imaging: CXRRadiodensities in the right greater than left lung base, favored to represent atelectasis. Clinically patient on room air at bedside, no complaint of shortness of breath or chest pain, occasional crackles appreciated. Coughing at bedside Encourage every hour incentive spirometer/flutter valve/self proning as able Mucinex for cough, supplemental O2 BNP: Negative for age, 784; Strict I's and O's; as needed IV Lasix; monitor BMP Remdesivir held after 3 doses on 10/25 due to patient being on room air for a day. Sliding scale and glycemic pharmacy if needed when on steroid. Continue with 10/22 Decadron and status post remdesivir 10/22-10/24 Clinically much better remains stable and only symptoms being cough Saturating normally on room air We will get PT OT-recommended rehab Will give 40 mg of Lasix intravenously x1 today Remains stable with minimal cough but without any other significant symptoms Awaiting placement-remains stable and does not have any respiratory symptoms Generalized weakness May be contributed by COVID-19 virus infection Has been getting PT and OT-awaiting placement #. Concern for atypical pneumonia Presenting signs and symptoms cough with yellow sputum Continue with doxycycline 10/23 #. Chronic medical condition: HTN, HLD, RA, DM2 [last A1c 6.21 November 2017], dementia, past tobacco abuse Resume home meds as appropriate. Delirium precautions On insulin sliding scale Patient's daughters: Ms. Brunilda Cali, contact #[phone]. Ms. Mirian Lay, contact #[phone]. DVT prophylaxis per Lovenox subcu Full code as per patient's family. Admission and Anticipated Discharge Date Admission Date: October 22, 2021 Subjective 10/26/2021 The patient was seen and examined in Covid unit She has cough at rest and gets short of breath with minimal exertion but does not require any oxygen at rest Remains generally weak and lethargic 10/27/2021 The patient was seen and examined in Covid unit She has been weak and lethargic and also has minimal cough but no shortness of breath She has been saturating normally on room air 10/28/21 The patient was seen and examined in Covid unit She has been feeling much better and denies any significant symptoms except minimal cough Has had PT and OT and recommended rehab 10/29/2021 The patient was seen and examined in Covid unit She remains weak and lethargic and has been eating and drinking enough Denies any respiratory symptoms Review of Systems Review of Systems: All systems reviewed and are unremarkable except as noted below Respiratory: Has cough without any shortness of breath at rest Physical Exam Physical Exam: Lying in bed comfortably Constitutional: well developed, well nourished, + ill appearing and average body habitus Eyes: PERRL, conjunctivae normal, anicteric sclerae ENMT: external ear and nose normal, oropharynx normal Respiratory: no respiratory distress Auscultation: + diminished lung sounds and + crackles (Minimal crackles at the bases) Cardiovascular: Rate/Rhythm: regular rate and regular rhythm; not tachycardic Heart Sounds: normal S1 and normal S2; no murmur Extremities: no edema Gastrointestinal (Abdomen): Inspection/Auscultation: normal bowel sounds; abdomen not distended Percussion/Palpation: abdomen soft; abdomen nontender Musculoskeletal: No acute arthritis in any joint Neurologic: Alert, awake and oriented x3. Generally very weak and lethargic Lymphatic: no cervical or axillary lymphadenopathy Results & Data Results & Data ([facility]) Vital Signs (Past 12 Hours) Vital Signs Temp Pulse Pulse Resp BP Pulse Ox 10/29/21 11:18 36.3 C L 71 20 97/59 L 92 10/29/21 08:00 67 10/29/21 07:38 36.6 C 85 16 130/77 91 10/29/21 06:22 71 Medications Administered Current Inpatient Medications Acetaminophen (Acetaminophen 325 Mg Tab) 650 mg PO Q4H PRN PRN Reason: Pain or Fever Stop: 11/21/21 23:24 Atorvastatin Calcium (Atorvastatin 10 Mg Tab) 10 mg PO MoWeFr@2100 [facility] Stop: 11/22/21 00:29 Last Admin: 10/26/21 20:31 Dose: 10 mg Documented by: Baclofen (Baclofen 10 Mg Tab) 10 mg PO TID PRN PRN Reason: Muscle Spasm Stop: 11/21/21 23:24 Benzonatate (Benzonatate 100 Mg Capsule) 100 mg PO TID [facility] Stop: 11/26/21 13:59 Last Admin: 10/29/21 13:45 Dose: 100 mg Documented by: Brimonidine Tartrate (Brimonidine Tartrate 0.2% 5ml) 1 drops OPB BID [facility] Stop: 11/21/21 23:24 Last Admin: 10/29/21 09:06 Dose: 1 drops Documented by: Dextrose (Dextrose 50% 50 Ml Syringe) 25 - 50 ml IV UD PRN; Protocol PRN Reason: Hypoglycemia Protocol Stop: 11/21/21 21:59 Diltiazem HCl (Diltiazem Hcl 300 Mg Capcr) 300 mg PO HS [facility] Stop: 11/21/21 21:44 Last Admin: 10/28/21 21:06 Dose: 300 mg Documented by: Dorzolamide/Timolol (Dorzolamide/Timolol 22.3/6.8mg/Ml 10 Ml Btl) 1 drops OPB BID [facility] Stop: 11/21/21 23:24 Last Admin: 10/29/21 09:06 Dose: 1 drops Documented by: Doxycycline Hyclate (Doxycycline Hyclate 100 Mg Cap) 100 mg PO BID [facility] Stop: 10/30/21 08:59 Last Admin: 10/29/21 09:04 Dose: 100 mg Documented by: Enoxaparin Sodium (Enoxaparin Inj 30 Mg/0.3 Ml Syr) 30 mg SQ QAM [facility] Stop: 11/22/21 08:59 Last Admin: 10/29/21 09:05 Dose: 30 mg Documented by: Glucagon (Glucagon For Inj 1 Mg Vial) 1 mg IM UD PRN; Protocol PRN Reason: Hypoglycemia Protocol Stop: 01/05/22 21:59 Glucose (Glucose 40% Gel 15 Gm Tube) 15 - 30 gm PO UD PRN; Protocol PRN Reason: Hypoglycemia Protocol Stop: 11/21/21 21:59 Glucose (Glucose 10 Tabs/Tube) 4 - 8 tabs PO UD PRN; Protocol PRN Reason: Hypoglycemia Protocol Stop: 11/21/21 21:59 Guaifenesin (Guaifenesin 600 Mg Tabcr) 600 mg PO Q12 [facility] Stop: 11/24/21 20:59 Last Admin: 10/29/21 09:04 Dose: 600 mg Documented by: Hydralazine HCl (Hydralazine Tab 50 Mg Tab) 50 mg PO BID [facility] Stop: 11/21/21 21:44 Last Admin: 10/29/21 09:05 Dose: 50 mg Documented by: Hydralazine HCl (Hydralazine Hcl 20 Mg/Ml Vial) 10 mg IV Q6H PRN PRN Reason: hypertension Stop: 11/24/21 17:14 Promethazine HCl 6.25 mg/ (Sodium Chloride) 50.25 mls @ 201 mls/hr IV Q6H PRN PRN Reason: Nausea And Vomiting Stop: 11/21/21 23:24 Remdesivir 100 mg/ Sodium (Chloride) 250 mls @ 250 mls/hr IV Q24H [facility]; Protocol Last Infusion: 10/24/21 22:08 Dose: Infused Documented by: Dexamethasone 6 mg/ Syringe 1.5 mls @ 1 mls/min IV Q24H [facility] Stop: 11/01/21 15:59 Last Admin: 10/28/21 15:33 Dose: 1 mls/min Documented by: Insulin Aspart (Insulin Aspart 100 Units/Ml Vial) 0 units SC ACHS [facility] Stop: 11/21/21 23:24 Last Admin: 10/29/21 12:46 Dose: 6 units Documented by: Insulin Glargine (Insulin Glargine Solostar 100 Units/Ml 3 Ml Pen) 5 units SC HS [facility] Stop: 11/21/21 20:59 Last Admin: 10/28/21 21:05 Dose: 5 units Documented by: Ipratropium [place] (Ipratropium [place] Neb Soln 0.02% 2.5 Ml Vial) 0.5 mg INH Q4H PRN PRN Reason: SOB/WHEEZE Stop: 11/21/21 23:24 Latanoprost (Latanoprost 0.005% Op Soln 2.5 Ml Btl) 1 drops OPB HS [facility] Stop: 11/21/21 23:24 Last Admin: 10/28/21 20:58 Dose: 1 drops Documented by: Levalbuterol HCl (Levalbuterol 1.25mg/0.5ml Neb) 1.25 mg INH Q4H PRN PRN Reason: SOB/WHEEZE Stop: 11/21/21 23:24 Levothyroxine Sodium (Levothyroxine Sodium 50 Mcg Tablet) 50 mcg PO MoTuWeThFrSa@[id number] [facility] Stop: 11/22/21 06:29 Last Admin: 10/29/21 05:45 Dose: 50 mcg Documented by: Levothyroxine Sodium (Levothyroxine Sodium 100 Mcg Tablet) 100 mcg PO Steele@0630 [facility] Stop: 11/27/21 06:29 Last Admin: 10/28/21 05:50 Dose: 100 mcg Documented by: Losartan Potassium (Losartan Potassium 50 Mg Tab) 100 mg PO QAM [facility] Stop: 11/23/21 08:59 Last Admin: 10/29/21 09:04 Dose: 100 mg Documented by: Melatonin (Melatonin 3 Mg Tab) 3 mg PO HS PRN PRN Reason: Sleep Stop: 11/21/21 23:24 Miscellaneous (Carbohydrates For Hypoglycemia ) 15 - 30 gm PO UD PRN PRN Reason: Hypoglycemia Treatment Stop: 11/21/21 21:59 Olmesartan (Olmesartan Medoxomil 40 Mg Tab) 40 mg PO DAILY [facility] Stop: 11/22/21 08:59 Last Admin: 10/29/21 09:04 Dose: 40 mg Documented by: Sertraline HCl (Sertraline Hcl 50 Mg Tablet) 50 mg PO QAM [facility] Stop: 11/22/21 08:59 Last Admin: 10/29/21 09:05 Dose: 50 mg Documented by: Tramadol HCl (Tramadol Hcl 50 Mg Tablet) 25 mg PO Q4H PRN PRN Reason: Pain Stop: 11/21/21 21:42 Trazodone HCl (Trazodone Hcl 100 Mg Tab) 100 mg PO QPM [facility] Stop: 11/22/21 20:59 Last Admin: 10/28/21 20:59 Dose: 100 mg Documented by:
[2021-10-29] MEDS: dexAMETHasone 6 MG in SYRINGE 0 ML IV SCH (17:25)
[2021-10-29] MEDS: ATORVASTATIN 10 MG TAB PO SCH (20:49)
[2021-10-29] MEDS: INSULIN GLARGINE SOLOSTAR 100 UNITS/ML 3 ML PEN SC SCH (20:55)
[2021-10-29] MEDS: LATANOPROST 0.005% OP SOLN 2.5 ML BTL OPB SCH (20:56)
[2021-10-29] MEDS: traZODone HCL 100 MG TAB PO SCH (20:56)
[2021-10-29] MEDS: dilTIAZem HCL 300 MG CAPCR PO SCH (21:12)
[2021-10-30 03:25] LABS: Appearance Urine Clear (Clear); Bilirubin Urine Negative (Negative); Blood Urine Negative (Negative); Color Urine Dark Yellow; Glucose Urine UA Negative (Negative); Ketones Urine Negative (Negative); Leukocyte Esterase Urine Negative (Negative); Nitrite Urine Negative (Negative); Protein Urine Negative (Negative); Specific Gravity Urine 1.023 (1.000-1.030); Urobilinogen Urine Negative (Negative)
[2021-10-30] MEDS: LEVOTHYROXINE SODIUM 50 MCG TABLET PO SCH (06:00)
[2021-10-30] MEDS: hydrALAZINE TAB 50 MG TAB PO SCH (07:56)
[2021-10-30] MEDS: LOSARTAN POTASSIUM 50 MG TAB PO SCH (07:56)
[2021-10-30] MEDS: SERTRALINE HCL 50 MG TABLET PO SCH (07:56)
[2021-10-30] MEDS: OLMESARTAN MEDOXOMIL 40 MG TAB PO SCH (07:56)
[2021-10-30] MEDS: DORZOLAMIDE/TIMOLOL 22.3/6.8MG/ML 10 ML BTL OPB SCH (07:57)
[2021-10-30] MEDS: BENZONATATE 100 MG CAPSULE PO SCH ×2 (07:57→14:33)
[2021-10-30] MEDS: ENOXAPARIN INJ 30 MG/0.3 ML SYR SQ SCH (07:57)
[2021-10-30] MEDS: BRIMONIDINE TARTRATE 0.2% 5ML OPB SCH (07:57)
[2021-10-30] MEDS: guaiFENesin 600 MG TABCR PO SCH (07:57)
[2021-10-30] MEDS: INSULIN ASPART 100 UNITS/ML VIAL SC SCH ×2 (08:02→12:09)
--- NOTE | 2021-10-30 11:50 | Hospitalist Progress Note ---
Date of Service October 30, 2021 Assessment & Plan (1) Acute hypoxemic respiratory failure due to COVID-19: (2) Atypical pneumonia: Plan: 89-year-old lady with PMH of HTN, HLD, RA, GERD, DM2 on oral medication, dementia and past tobacco abuse presented to our ED 10/22 with complaint of junky cough symptoms with shortness of breath since 5 days [employer]. Positive sick COVID- 19 contacts. Outpatient COVID-19 test from 3 days ago [employer] was positive [10/19]. At presentation she was saturating in the 80s on room air. She is being managed for the following: #. Acute hypoxic respiratory failure #. Covid pneumonia Vaccine status/month: Not vaccinated; S/S : 5 days [employer]; Tested Positive: 10/19 outpatient and 10/22 in ED Admitting pro-Ketan: Negative Admitting imaging: CXRRadiodensities in the right greater than left lung base, favored to represent atelectasis. Clinically patient on room air at bedside, no complaint of shortness of breath or chest pain, occasional crackles appreciated. Coughing at bedside Encourage every hour incentive spirometer/flutter valve/self proning as able Mucinex for cough, supplemental O2 BNP: Negative for age, 786; Strict I's and O's; as needed IV Lasix; monitor BMP Remdesivir held after 3 doses on 10/25 due to patient being on room air for a day. Sliding scale and glycemic pharmacy if needed when on steroid. Continue with 10/22 Decadron and status post remdesivir 10/22-10/24 Clinically much better remains stable and only symptoms being cough Saturating normally on room air We will get PT OT-recommended rehab Will give 40 mg of Lasix intravenously x1 today Remains stable with minimal cough but without any other significant symptoms Awaiting placement-remains stable and does not have any respiratory symptoms Has been accepted to [facility] and should be transferred to [facility] this afternoon Generalized weakness May be contributed by COVID-19 virus infection Has been getting PT and OT-awaiting placement Continue with PT and OT #. Concern for atypical pneumonia Presenting signs and symptoms cough with yellow sputum Continue with doxycycline 10/23 Antibiotic course is done #. Chronic medical condition: HTN, HLD, RA, DM2 [last A1c 6.21 November 2017], dementia, past tobacco abuse Resume home meds as appropriate. Delirium precautions On insulin sliding scale Patient's daughters: Ms. Brunilda Cali, contact #[phone]. Ms. Mirian Lay, contact #[phone]. DVT prophylaxis per Lovenox subcu Full code as per patient's family. Discussed with the family members Admission and Anticipated Discharge Date Admission Date: October 22, 2021 Subjective 10/26/2021 The patient was seen and examined in Covid unit She has cough at rest and gets short of breath with minimal exertion but does not require any oxygen at rest Remains generally weak and lethargic 10/27/2021 The patient was seen and examined in Covid unit She has been weak and lethargic and also has minimal cough but no shortness of breath She has been saturating normally on room air 10/28/21 The patient was seen and examined in Covid unit She has been feeling much better and denies any significant symptoms except minimal cough Has had PT and OT and recommended rehab 10/29/2021 The patient was seen and examined in Covid unit She remains weak and lethargic and has been eating and drinking enough Denies any respiratory symptoms 10/30/2021 The patient was seen and examined in Covid unit She has been feeling much better and besides weakness denies any other symptoms No cough, no shortness of breath and she does not require any oxygen to maintain saturation Review of Systems Review of Systems: All systems reviewed and are unremarkable except as noted below Respiratory: No respiratory distress Physical Exam Physical Exam: Lying in bed comfortably Constitutional: well developed, well nourished, + ill appearing and average body habitus Eyes: PERRL, conjunctivae normal, anicteric sclerae ENMT: external ear and nose normal, oropharynx normal Respiratory: no respiratory distress Auscultation: + diminished lung sounds and + crackles (Minimal crackles at the bases) Cardiovascular: Rate/Rhythm: regular rate and regular rhythm; not tachycardic Heart Sounds: normal S1 and normal S2; no murmur Extremities: no edema Gastrointestinal (Abdomen): Inspection/Auscultation: normal bowel sounds; abdomen not distended Percussion/Palpation: abdomen soft; abdomen nontender Musculoskeletal: No acute arthritis in any joint Neurologic: Alert and awake. Pleasantly confused, generally weak without any focal neuro deficit Lymphatic: no cervical or axillary lymphadenopathy Results & Data Results & Data ([facility]) Vital Signs (Past 12 Hours) Vital Signs Temp Pulse Pulse Resp BP Pulse Ox 10/30/21 11:07 36.5 C 68 18 108/72 91 10/30/21 07:39 36.4 C L 75 18 117/71 92 10/30/21 03:47 37 C 61 16 100/62 91 10/30/21 00:08 36.5 C 63 63 18 97/55 L 91 Diagnostic Findings Current Inpatient Medications Acetaminophen (Acetaminophen 325 Mg Tab) 650 mg PO Q4H PRN PRN Reason: Pain or Fever Stop: 11/21/21 23:24 Atorvastatin Calcium (Atorvastatin 10 Mg Tab) 10 mg PO MoWeFr@2100 [facility] Stop: 11/22/21 00:29 Last Admin: 10/29/21 20:49 Dose: 10 mg Documented by: Baclofen (Baclofen 10 Mg Tab) 10 mg PO TID PRN PRN Reason: Muscle Spasm Stop: 11/21/21 23:24 Benzonatate (Benzonatate 100 Mg Capsule) 100 mg PO TID [facility] Stop: 11/26/21 13:59 Last Admin: 10/30/21 07:57 Dose: 100 mg Documented by: Brimonidine Tartrate (Brimonidine Tartrate 0.2% 5ml) 1 drops OPB BID [facility] Stop: 11/21/21 23:24 Last Admin: 10/30/21 07:57 Dose: 1 drops Documented by: Dextrose (Dextrose 50% 50 Ml Syringe) 25 - 50 ml IV UD PRN; Protocol PRN Reason: Hypoglycemia Protocol Stop: 11/21/21 21:59 Diltiazem HCl (Diltiazem Hcl 300 Mg Capcr) 300 mg PO HS [facility] Stop: 11/21/21 21:44 Last Admin: 10/29/21 21:12 Dose: Not Given Documented by: Dorzolamide/Timolol (Dorzolamide/Timolol 22.3/6.8mg/Ml 10 Ml Btl) 1 drops OPB BID [facility] Stop: 11/21/21 23:24 Last Admin: 10/30/21 07:57 Dose: 1 drops Documented by: Enoxaparin Sodium (Enoxaparin Inj 30 Mg/0.3 Ml Syr) 30 mg SQ QAM [facility] Stop: 11/22/21 08:59 Last Admin: 10/30/21 07:57 Dose: 30 mg Documented by: Glucagon (Glucagon For Inj 1 Mg Vial) 1 mg IM UD PRN; Protocol PRN Reason: Hypoglycemia Protocol Stop: 11/21/21 21:59 Glucose (Glucose 40% Gel 15 Gm Tube) 15 - 30 gm PO UD PRN; Protocol PRN Reason: Hypoglycemia Protocol Stop: 11/21/21 21:59 Glucose (Glucose 10 Tabs/Tube) 4 - 8 tabs PO UD PRN; Protocol PRN Reason: Hypoglycemia Protocol Stop: 11/21/21 21:59 Guaifenesin (Guaifenesin 600 Mg Tabcr) 600 mg PO Q12 [facility] Stop: 11/24/21 20:59 Last Admin: 10/30/21 07:57 Dose: 600 mg Documented by: Hydralazine HCl (Hydralazine Tab 50 Mg Tab) 50 mg PO BID [facility] Stop: 11/21/21 21:44 Last Admin: 10/30/21 07:56 Dose: 50 mg Documented by: Hydralazine HCl (Hydralazine Hcl 20 Mg/Ml Vial) 10 mg IV Q6H PRN PRN Reason: hypertension Stop: 11/24/21 17:14 Promethazine HCl 6.25 mg/ (Sodium Chloride) 50.25 mls @ 201 mls/hr IV Q6H PRN PRN Reason: Nausea And Vomiting Stop: 11/21/21 23:24 Remdesivir 100 mg/ Sodium (Chloride) 250 mls @ 250 mls/hr IV Q24H [facility]; Protocol Last Infusion: 10/24/21 22:08 Dose: Infused Documented by: Dexamethasone 6 mg/ Syringe 1.5 mls @ 1 mls/min IV Q24H [facility] Stop: 11/01/21 15:59 Last Admin: 10/29/21 17:25 Dose: 1 mls/min Documented by: Insulin Aspart (Insulin Aspart 100 Units/Ml Vial) 0 units SC ACHS [facility] Stop: 11/21/21 23:24 Last Admin: 10/30/21 08:02 Dose: 5 units Documented by: Insulin Glargine (Insulin Glargine Solostar 100 Units/Ml 3 Ml Pen) 5 units SC HS [facility] Stop: 11/21/21 20:59 Last Admin: 10/29/21 20:55 Dose: 5 units Documented by: Ipratropium [place] (Ipratropium [place] Neb Soln 0.02% 2.5 Ml Vial) 0.5 mg INH Q4H PRN PRN Reason: SOB/WHEEZE Stop: 11/21/21 23:24 Latanoprost (Latanoprost 0.005% Op Soln 2.5 Ml Btl) 1 drops OPB HS [facility] Stop: 11/21/21 23:24 Last Admin: 10/29/21 20:56 Dose: 1 drops Documented by: Levalbuterol HCl (Levalbuterol 1.25mg/0.5ml Neb) 1.25 mg INH Q4H PRN PRN Reason: SOB/WHEEZE Stop: 11/21/21 23:24 Levothyroxine Sodium (Levothyroxine Sodium 50 Mcg Tablet) 50 mcg PO MoTuWeThFrSa@30 [facility] Stop: 11/22/21 06:29 Last Admin: 10/30/21 06:00 Dose: 50 mcg Documented by: Levothyroxine Sodium (Levothyroxine Sodium 100 Mcg Tablet) 100 mcg PO Steele@30 [facility] Stop: 11/27/21 06:29 Last Admin: 10/28/21 05:50 Dose: 100 mcg Documented by: Losartan Potassium (Losartan Potassium 50 Mg Tab) 100 mg PO QAM [facility] Stop: 11/23/21 08:59 Last Admin: 10/30/21 07:56 Dose: 100 mg Documented by: Melatonin (Melatonin 3 Mg Tab) 3 mg PO HS PRN PRN Reason: Sleep Stop: 11/21/21 23:24 Miscellaneous (Carbohydrates For Hypoglycemia ) 15 - 30 gm PO UD PRN PRN Reason: Hypoglycemia Treatment Stop: 11/21/21 21:59 Olmesartan (Olmesartan Medoxomil 40 Mg Tab) 40 mg PO DAILY [facility] Stop: 11/22/21 08:59 Last Admin: 10/30/21 07:56 Dose: 40 mg Documented by: Sertraline HCl (Sertraline Hcl 50 Mg Tablet) 50 mg PO QAM [facility] Stop: 11/22/21 08:59 Last Admin: 10/30/21 07:56 Dose: 50 mg Documented by: Tramadol HCl (Tramadol Hcl 50 Mg Tablet) 25 mg PO Q4H PRN PRN Reason: Pain Stop: 11/21/21 21:42 Trazodone HCl (Trazodone Hcl 100 Mg Tab) 100 mg PO QPM [facility] Stop: 11/22/21 20:59 Last Admin: 10/29/21 20:56 Dose: 100 mg Documented by:
--- NOTE | 2021-11-12 09:40 | Discharge Summary ---
Date of Service November 12, 2021 Admission HPI Per Admitting Provider History obtained from patient, family, and records. History somewhat limited from patient secondary to anxiety and mild hearing impairment. Medical history significant for hypertension, hyperlipidemia, rheumatoid ar thritis, GERD, DM2 on oral medications, dementia, past tobacco abuse 5 days ago, patient noted to have junky cough symptoms with shortness of breath. No chest pain. Poor appetite as per family. Positive sick COVID-19 contacts. Outpatient COVID-19 test from 3 days ago was positive. Patient has not received COVID-19 vaccination. Patient brought to the ER for evaluation. O2 sats 80s on room air. IV Decadron given at the ER. 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 Admission Exam Per Admitting Provider Physical Exam: GENERAL: Slightly uncomfortable, anxious, no respiratory distress SKIN: Normal color, warm HEENT: [place] palpebral conjunctivae, no ptosis, dry buccal mucosa, nasal cannula in place NECK : Supple, no tenderness CHEST : Decreased breath sounds, expiratory wheezes, no tenderness HEART : RRR, no obvious murmurs ABDOMEN: Some distention, nontender EXTREMITIES : No LE swelling/tenderness, no other conspicuous deformities noted NEUROLOGIC : Coherent, no facial asymmetry, slightly hard of hearing, no other gross focality Principal Diagnosis Acute hypoxic respiratory failure, COVID-19 pneumonia, generalized weakness, type 2 diabetes, hypertension, stable rheumatoid arthritis Discharge Exam Lying in bed comfortably Constitutional well developed, well nourished, + ill appearing and average body habitus Eyes PERRL, conjunctivae normal, anicteric sclerae ENMT external ear and nose normal, oropharynx normal Respiratory no respiratory distress Auscultation: + diminished lung sounds and + crackles (Minimal crackles at the bases) Cardiovascular Rate/Rhythm: regular rate and regular rhythm; not tachycardic Heart Sounds: normal S1 and normal S2; no murmur Extremities: no edema Gastrointestinal (Abdomen) Inspection/Auscultation: normal bowel sounds; abdomen not distended Percussion/Palpation: abdomen soft; abdomen nontender Lymphatic no cervical or axillary lymphadenopathy Discharge Data Allergies Allergy/AdvReac Type Severity Reaction Status Date / Time diazepam Allergy Intermediate HALLUCIATIO Unverified 05/04/20 14:36 NS hydrocodone Allergy Intermediate unk Unverified 05/04/20 14:36 Penicillins Allergy Intermediate DIARRHEA Unverified 05/04/20 14:36 Sulfa (Sulfonamide Allergy Intermediate ABD PAIN Unverified 05/04/20 14:36 Antibiotics) aspirin Allergy Unknown unk Verified 05/04/20 14:36 cyclobenzaprine Allergy Unknown unk Verified 05/04/20 14:36 hydrochlorothiazide Allergy Unknown unk Verified 05/04/20 14:36 meloxicam Allergy Unknown unk Verified 05/04/20 14:36 methotrexate Allergy Unknown unk Verified 05/04/20 14:36 rofecoxib Allergy Unknown UNKNOWN Unverified 05/04/20 14:36 potassium chloride Allergy Unknown Unverified 10/22/21 20:52 TAPE Allergy Intermediate REDDENED Uncoded 05/04/20 14:36 SKIN, SKIN TEARS Consultations 10/22/21 19:20 ED Decision to Admit Stat Hospital Course (1) Acute hypoxemic respiratory failure due to COVID-19: (2) Atypical pneumonia: 89-year-old lady with PMH of HTN, HLD, RA, GERD, DM2 on oral medication, dementia and past tobacco abuse presented to our ED 10/22 with complaint of junky cough symptoms with shortness of breath since 5 days [employer]. Positive sick COVID- 19 contacts. Outpatient COVID-19 test from 3 days ago [employer] was positive [10/19]. At presentation she was saturating in the 80s on room air. She is being managed for the following: #. Acute hypoxic respiratory failure #. Covid pneumonia Vaccine status/month: Not vaccinated; S/S : 5 days [employer]; Tested Positive: 10/19 outpatient and 10/22 in ED Admitting pro-Ketan: Negative Admitting imaging: CXRRadiodensities in the right greater than left lung base, favored to represent atelectasis. Clinically patient on room air at bedside, no complaint of shortness of breath or chest pain, occasional crackles appreciated. Coughing at bedside Encourage every hour incentive spirometer/flutter valve/self proning as able Mucinex for cough, supplemental O2 BNP: Negative for age, 89; Strict I's and O's; as needed IV Lasix; monitor BMP Remdesivir held after 3 doses on 10/25 due to patient being on room air for a day. Sliding scale and glycemic pharmacy if needed when on steroid. Continue with 10/22 Decadron and status post remdesivir 10/22-10/24 Clinically much better remains stable and only symptoms being cough Saturating normally on room air We will get PT OT-recommended rehab Will give 40 mg of Lasix intravenously x1 today Remains stable with minimal cough but without any other significant symptoms Awaiting placement-remains stable and does not have any respiratory symptoms Has been accepted to [facility] and should be transferred to [facility] this afternoon Generalized weakness May be contributed by COVID-19 virus infection Has been getting PT and OT-awaiting placement Continue with PT and OT #. Concern for atypical pneumonia Presenting signs and symptoms cough with yellow sputum Continue with doxycycline 10/23 Antibiotic course is done #. Chronic medical condition: HTN, HLD, RA, DM2 [last A1c 6.21 November 2017], dementia, past tobacco abuse Resume home meds as appropriate. Delirium precautions On insulin sliding scale Patient's daughters: Ms. Brunilda Cali, contact #[phone]. Ms. Mirian Lay, contact #[phone]. DVT prophylaxis per Lovenox subcu Full code as per patient's family. Discussed with the family members Total Time Total Time Spent Total Time Spent (In Minutes): 35 minutes Discharge Plan Discharge Items Patient Disposition: Transfer Inpatient Rehab Fac Reason For Visit: COVID +, DIARRHEA, UNABLE TO EAT Discharge Diagnosis: Acute hypoxic respiratory failure, COVID-19 pneumonia, generalized weakness, type 2 diabetes, hypertension, stable rheumatoid arthritis Condition on Discharge: Fair Activity: As commented below Activity Comment: Will need PT and OT Non-emergency contact: Primary Care Provider Call non-emergency contact if: you have any medication questions and your sym ptoms worsen Follow-up/Referrals: Rola Leo [Primary Care Provider] - (Please make an appointment with your primary care physician within 7 days following discharge from the facility) Diet: Carb Consistent or DM2 Addtl Attending Provider Instructions: Please take precautions to avoid fall No change in new home medications Pending Studies at Discharge: No Stand-Alone Forms: [facility] Skilled Items Patient informed of condition?: Yes DNR: No Discharge Level of Care: Skilled Communicable Disease: No Discharge Prognosis: Stable Lines: None Urinary Catheter: No Medications and DC Order Prescriptions: Continued latanoprost 0.005 % drops 1 drp OPB HS RF: 0 acetaminophen 325 mg Tablet 325 mg PO BID PRN (Reason: Pain) RF: 0 atorvastatin 10 mg tablet 10 mg PO 3XWK RF: 0 trazodone 100 mg tablet 100 mg PO QPM RF: 0 diltiazem HCl 300 mg capsule,extended release 24hr 300 mg PO HS RF: 0 brimonidine 0.2 % drops 1 drp OPB BID RF: 0 dorzolamide-timolol 22.3-6.8 mg/mL drops 1 drp OPB BID RF: 0 hydralazine 50 mg tablet 50 mg PO BID RF: 0 losartan 100 mg tablet 100 mg PO QAM RF: 0 sertraline 50 mg tablet 50 mg PO QAM RF: 0 Januvia 50 mg tablet 50 mg PO QAM RF: 0 cholecalciferol (vitamin D3) [Vitamin D3] 125 mcg (5,000 unit) Tablet 125 mcg PO DAILY RF: 0 Changed levothyroxine 50 mcg tablet 100 mcg PO DAILYBB Qty: 0 RF: 0 Discharge Orders: Discharge Order (Routine); Ordered 10/30/21 Ordered By: Romeo Wilson/Other Patient Handouts: Managing Type 2 Diabetes Admission Data Admit Date/Time: 10/22/21 20:09 Attending Provider: Romeo Larose Admit Provider: Jose Ramon Gardiner Primary Care Provider: Rola Leo Other Providers: Jose Ramon Gardiner ; Chata Keenan ; [facility]
== END 2021-10-30 15:30 | DRG 177 ==
LOC: ED 15:40 → EDINP 20:09 → SUATTDRO 20:09 → EDINP 23:03 → 2W 10-23 16:51
DX: Z79.899 Other long term (current) drug therapy; E87.6 Hypokalemia; J96.01 Acute respiratory failure with hypoxia; Z79.84 Long term (current) use of oral hypoglycemic drugs; M06.9 Rheumatoid arthritis, unspecified; Z91.048 Other nonmedicinal substance allergy status; E11.9 Type 2 diabetes mellitus without complications; Z88.0 Allergy status to penicillin; K21.9 Gastro-esophageal reflux disease without esophagitis; U07.1 COVID-19; J15.9 Unspecified bacterial pneumonia; J12.82 Pneumonia due to coronavirus disease 2019; Z88.6 Allergy status to analgesic agent; Z87.891 Personal history of nicotine dependence; F41.9 Anxiety disorder, unspecified; Z88.2 Allergy status to sulfonamides; Z88.5 Allergy status to narcotic agent; Z88.8 Allergy status to other drugs, medicaments and biological substances; F03.90 Unspecified dementia, unspecified severity, without behavioral disturbance, psychotic disturbance, mood disturbance, and anxiety; E78.5 Hyperlipidemia, unspecified; I10 Essential (primary) hypertension; Z79.890 Hormone replacement therapy